=== PATIENT | male | born 1970 | race Caucasian/White ===

== ENCOUNTER 2019-12-15 06:00 | Outpatient (RCR) | payer OTHER, SELFPAY | END 2020-01-01 23:59 | disposition home or self-care (01) | LOC: MPT 06:00 | PROVIDERS: PCP Physical Medicine & Rehabilitation Pain Medicine; Visit Provider Physical Medicine & Rehabilitation Pain Medicine | DX: M54.5 Low back pain (principal) | CPT/HCPCS: 97032; 97110; 97140; 97161; G0283 ==

== ENCOUNTER 2020-01-02 06:00 | Outpatient (RCR) | payer OTHER, SELFPAY | END 2020-02-01 23:59 | disposition home or self-care (01) | LOC: MPT 06:00 | PROVIDERS: PCP Physical Medicine & Rehabilitation Pain Medicine; Visit Provider Physical Medicine & Rehabilitation Pain Medicine | DX: M47.896 Other spondylosis, lumbar region (principal) | CPT/HCPCS: 97110; 97140; G0283 ==

== ENCOUNTER 2022-01-05 07:20 | Inpatient (IN) | payer OTHER, SELFPAY ==
[2022-01-05] VITALS (14 sets, daily range): BP systolic 114–156; BP diastolic 72–124; PULSE 99–143; RESP 16–18; TEMP 37.4–38.4; O2SAT 87–96; BMI 34.5
--- NOTE | 2022-01-05 07:23 | XRR_ITS ---
PROCEDURE INFORMATION: Exam: XR Right Hand Exam date and time: 01/05/2022 7:23 AM Age: 51 years old Clinical indication: Pain; Wrist; Right; Additional info: Swelling pain TECHNIQUE: Imaging protocol: XR Right hand. Views: 3 or more views. COMPARISON: No relevant prior studies available. FINDINGS: Bones/joints: There is no acute fracture or dislocation. If symptoms persist, follow-up imaging in several days may be useful to exclude an occult fracture. No other significant acute bone or joint abnormality. Mild to moderate arthritic changes at the 1st carpometacarpal joint, and multiple interphalangeal joints. Soft tissues: There appears to be some diffuse soft tissue swelling/prominence. XR/XR hand RT min 3V* [id number] IMPRESSION: 1. No acute fracture or dislocation. 2. Other findings discussed above.
--- NOTE | 2022-01-05 07:31 | XRR_ITS ---
PROCEDURE INFORMATION: Exam: XR Right Wrist Exam date and time: 01/05/2022 7:31 AM Age: 51 years old Clinical indication: Pain; Wrist; Right TECHNIQUE: Imaging protocol: XR Right wrist. Views: 3 or more views. COMPARISON: No relevant prior studies available. FINDINGS: Bones/joints: There is no acute fracture or dislocation. If symptoms persist, follow-up imaging in several days may be useful to exclude an occult fracture. No other significant acute bone or joint abnormality. Mild to moderate arthritic changes at the 1st carpometacarpal joint. Soft tissues: There appears to be some diffuse soft tissue swelling/prominence. XR/XR wrist RT min 3V* [id number] IMPRESSION: 1. No acute fracture or dislocation. 2. Other findings discussed above.
--- NOTE | 2022-01-05 07:49 | ECG_ITS ---
[facility] Test Date: 2022-01-05 Pat Name: Star Valenzuela Department: Room: Gender: Male Network Analyst: : 1970 Requested By: Colton Esteves Order Number: [id number] Hollis MD: Kesha Stark M.D. Measurements Intervals [place] Rate: 138 P: 16 MN: 140 QRS: 11 QRSD: 80 T: 13 QT: 296 QTc: 450 Interpretive Statements SINUS TACHYCARDIA NONSPECIFIC T-WAVE ABNORMALITY No previous ECG available for comparison Electronically Signed On 01-05-2022 8:25:06 FEATURES REPORTER by Kesha Stark M.D. [id number]
--- NOTE | 2022-01-05 07:50 | CTR_ITS ---
PROCEDURE INFORMATION: Exam: CTA Right Upper Extremity With Contrast Exam date and time: 01/05/2022 7:50 AM Age: 51 years old Clinical indication: Pain; Swelling; Arm, lower; Right; Lower or forearm; Additional info: Soft tissue infection TECHNIQUE: Imaging protocol: Computed tomographic angiography of the Right upper extremity with intravenous contrast material, including non-contrast images if performed. 3D rendering (Not supervised by radiologist): MIP and/or 3D reconstructed images were created by the technologist. Radiation optimization: All CT scans at this facility use at least one of these dose optimization techniques: automated exposure control; mA and/or kV adjustment per patient size (includes targeted exams where dose is matched to clinical indication); or iterative reconstruction. Contrast material: OMNIPAQUE 350; Contrast volume: 90 ml; Contrast route: INTRAVENOUS (IV); COMPARISON: CR ([facility], ) 01/05/2022 7:51 AM RADIATION DOSE METRICS: Total DLP (mGy-cm): 654.96 FINDINGS: Right brachial artery: No acute findings. No occlusion or significant stenosis. Right radial artery: No acute findings. No occlusion or significant stenosis. Right ulnar artery: No acute findings. No occlusion or significant stenosis. Bones/joints: Scanning was from the distal humerus through the mid hand. Soft tissues: Diffuse soft tissue swelling is seen circumferentially involving the forearm with fluid in the subcutaneous tissues but not a well-defined collection. There is soft tissue swelling at the elbow posteriorly. In the wrist soft tissue swelling is circumferential but most severe involving the dorsum of the hand and wrist. [place] [id number] IMPRESSION: Soft tissue edema with areas of fluid but no defined fluid collection. This does extend to the musculature. Recommend MRI for better evaluation of the musculature to evaluate for possible myositis if clinically indicated. No discrete abscess. No vascular abnormality.
--- NOTE | 2022-01-05 07:56 | ED_ITS ---
HPI - Extremity Problem General: Chief complaint: Extremity Problem,Nontraumatic Stated complaint: Right lower arm swollen bad hurting bad Time Seen by Provider: 01/05/22 07:22 Source: patient Mode of arrival: ambulatory Limitations: no limitations History of Present Illness: 51-year-old male presents emergency room stating last week his right hand and forearm have continually increase in swelling red ness and pain. Painful to touch there is an abrasion along the dorsum of the hand seems rather superficial there are some vesicles beginning from the swelling. He has discomfort there is also noticed a fever at home. He is tachycardic on arrival here as well. He denies any other injury. No fall. MD Complaint: extremity pain and extremity swelling Onset (ago): day(s) (-) Pain Consistency: constant Location: right and upper extremity Quality: aching Radiation: distal Relieving factors: immobilization Exacerbating factors: range of motion and palpation Associated symptoms: Reports fever(s) and myalgias; Deny arthralgias, chest pain, rash or short of breath Review of Systems Const: Reports: fever(s) ENMT: Denies: throat pain, ear or mastoid pain, nasal discharge or nasal congestion Card: Denies: chest pain Resp: Denies: dyspnea, productive cough or non-productive cough GI: Denies: abdominal pain, nausea, vomiting, hematemesis, coffee ground emesis, diarrhea, constipation, bloating, hematochezia or melena : Denies: flank pain, dysuria, urinary frequency or urinary urgency Skin/Breast: Denies: rash PFSH ED PFSH: Medical History Hypertension Obesity Surgical History History of rhinoplasty Social History Smoking and tobacco status: never smoked Alcohol intake: never Physical Exam Const: GENERAL APPEARANCE: cooperative and comfortable ORIENTATION/CONSCIOUSNESS: Yes awake, Yes oriented to person, Yes oriented to place and Yes oriented to time HENMT: COMMON NORMALS: normocephalic, atraumatic and hearing grossly normal bilaterally HEAD & SCALP: normocephalic and atraumatic Neck/C-Spine: COMMON NORMALS: no JVD Lymph: OTHER: No epitrochlear or axillary lymphadenopathy noted on palpation Resp: COMMON NORMALS: normal respiratory effort, No retractions, No use of accessory muscles and clear to auscultation bilaterally AUSCULTATION: clear to auscultation bilaterally Cardio: COMMON NORMALS: no JVD, regular rate, regular rhythm and No murmurs present (Cardio) RATE: regular rate RHYTHM: regular rhythm GI: COMMON NORMALS: Soft to palpation and No hepatosplenomegaly present AUSCULTATION: Yes normoactive bowel sounds PALPATION: Yes Soft to palpation, No Tenderness to palpation present (GI), No Guarding due to palpation present (GI) and Yes No hepatosplenomegaly present Extremity: OTHER: Severe swelling of the right forearm wrist and hand with some vesicle formation on the dorsum of the wrist. No identifiable puncture wound laceration or abrasion and seems to be the nidus of infection. Patient is able to move fingers no significant pain with passive range of motion. Neuro: SENSORIUM/ORIENTATION: Yes oriented to person, Yes oriented to place and Yes oriented to time Skin: COMMON NORMALS: no rashes or lesions noted GENERAL SKIN EXAM: no rashes or lesions noted Course Vital Signs: Vital signs: Vital Signs Temperature 100.1 F H 01/05/22 15:29 Pulse Rate 104 H 01/05/22 15:29 Respiratory Rate 18 01/05/22 15:29 Blood Pressure 123/83 01/05/22 15:29 Pulse Oximetry 96 01/05/22 15:29 MDM - Extremity (Nontraumatic) Medical Decision Making Elevated white count with tachycardia and fever. The swelling is quite impressive on his arm. I do not believe this could safely be treated as an outpatient. Oral antibiotics likely to advancing infection and possible full- blown sepsis. She be treated with IV antibiotics and a inpatient setting started vancomycin cultures done discussed with hospitalist orders written Medical Records I reviewed the patient's medical records. Lab Data I reviewed the patient's lab results. : 01/05/22 07:50 01/05/22 07:50 Radiology Impressions Hand X-Ray 01/05/22 07:23 IMPRESSION: 1. No acute fracture or dislocation. 2. Other findings discussed above. Wrist X-Ray 01/05/22 07:31 IMPRESSION: 1. No acute fracture or dislocation. 2. Other findings discussed above. Upper Extremity CTA 01/05/22 07:50 IMPRESSION: Soft tissue edema with areas of fluid but no defined fluid collection. This does extend to the musculature. Recommend MRI for better evaluation of the musculature to evaluate for possible myositis if clinically indicated. No discrete abscess. No vascular abnormality. Laboratory Results WBC 13.7 10^3/uL (4.0-10.0) H 01/05/22 07:50 RBC 4.63 10^6/uL (4.1-5.3) 01/05/22 07:50 Hgb 14.0 g/dL (11.7-16.6) 01/05/22 07:50 Hct 41.6 % (42.0-52.0) L 01/05/22 07:50 MCV 89.8 fl (80-94) 01/05/22 07:50 MCH 30.2 pg (28.0-34.0) 01/05/22 07:50 MCHC 33.7 g/dL (30.0-36.0) 01/05/22 07:50 RDW 11.9 % (12.1-15.1) L 01/05/22 07:50 Plt Count 225 10^3/cmm (130-400) 01/05/22 07:50 MPV 10.6 fL (7.4-10.4) H 01/05/22 07:50 Neut % (Auto) 73.5 % 01/05/22 07:50 Lymph % (Auto) 14.6 % 01/05/22 07:50 [place] % (Auto) 10.0 % 01/05/22 07:50 Eos % (Auto) 0.7 % 01/05/22 07:50 Baso % (Auto) 0.5 % 01/05/22 07:50 Neut # (Auto) 10.04 10^3/uL (1.8-7.7) H 01/05/22 07:50 Lymph # (Auto) 2.0 10^3/uL (0.8-4.8) 01/05/22 07:50 [place] # (Auto) 1.4 10^3/uL (0.2-0.9) H 01/05/22 07:50 Eos # (Auto) 0.1 10^3/uL (0.0-0.8) 01/05/22 07:50 Baso # (Auto) 0.1 10^3/uL (0.0-0.1) 01/05/22 07:50 Nucleated RBC % (auto) 0 % 01/05/22 07:50 Nucleated RBCs # 0.0 /100WBC 01/05/22 07:50 Sodium 132 mmol/L (136-145) L 01/05/22 07:50 Potassium 4.1 mmol/L (3.5-5.1) 01/05/22 07:50 Chloride 96 mmol/L (98-107) L 01/05/22 07:50 Carbon Dioxide 23 mmol/L (22-29) 01/05/22 07:50 Anion Gap 17.1 (5-19) 01/05/22 07:50 BUN 17 mg/dL (6-20) 01/05/22 07:50 Creatinine 0.9 mg/dL (0.7-1.2) 01/05/22 07:50 GFR Calculation 89.7 mL/min (90-130) L 01/05/22 07:50 Glucose 141 mg/dL (65-115) H 01/05/22 07:50 Calculated Osmolality 278 mOsm/kg (285-295) L 01/05/22 07:50 Lactic Acid 1.4 mmol/L (0.5-2.2) 01/05/22 07:50 Calcium 9.5 mg/dL (8.5-10.5) 01/05/22 07:50 Total Bilirubin 0.5 mg/dL (0.15-1.2) 01/05/22 07:50 AST 36 U/L (0-40) 01/05/22 07:50 ALT 46 U/L (0-41) H 01/05/22 07:50 Alkaline Phosphatase 73 IU/L (40-130) 01/05/22 07:50 Creatine Kinase 78 U/L (39-308) 01/05/22 07:50 Total Protein 8.8 g/dL (6.6-8.7) H 01/05/22 07:50 Albumin 3.6 g/dL (3.5-5.2) 01/05/22 07:50 Globulin 5.2 g/dL (1.3-4.6) H 03/05/22 07:50 Discharge Plan Discharge Patient Disposition: Admitted As Inpatient Admit Provider: Duane Silva Clinical Impression: Right forearm cellulitis, Hypertension, Obesity Condition: Stable Coding Level of Care Code 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
[2022-01-05 08:00] LABS: Basophils # 0.1 10^3/uL (0.0-0.1); Basophils % 0.5 %; Eosinophils # 0.1 10^3/uL (0.0-0.8); Eosinophils % 0.7 %; Hematocrit 41.6 % (42.0-52.0); Lymphocytes % 14.6 %; Mean Corpuscular HGB Conc 33.7 g/dL (30.0-36.0); Mean Corpuscular Hemoglobin 30.2 pg (28.0-34.0); Mean Corpuscular Volume 89.8 fl (80-94); Mean Platelet Volume 10.6 fL (7.4-10.4); Monocytes # 1.4 10^3/uL (0.2-0.9); Neutrophils # 10.04 10^3/uL (1.8-7.7); Neutrophils % 73.5 %; Nucleated Red Blood Cells % 0 %; Platelet Count 225 10^3/cmm (130-400); Red Blood Count 4.63 10^6/uL (4.1-5.3); Red Cell Distribution Width 11.9 % (12.1-15.1); White Blood Count 13.7 10^3/uL (4.0-10.0)
[2022-01-05] MEDS: ondansetron 2 mg/ML SDV 2 mL 4 MG IVP (08:08)
[2022-01-05] MEDS: morphine 4 mg/mL SDV 1 mL IVP (08:09)
[2022-01-05] MEDS: acetaminophen 500 mg Tablet 1000 MG PO (08:11)
[2022-01-05] MEDS: vancomycin 1,000 MG in sodium chloride 0.9% 250 ML 250 MG IV (08:14)
[2022-01-05 08:18] LABS: Alanine Aminotransferase 46 U/L (0-41); Albumin Level 3.6 g/dL (3.5-5.2); Alkaline Phosphatase 73 IU/L (40-130); Anion Gap 17.1 (5-19); Aspartate Amino Transferase 36 U/L (0-40); Blood Urea Nitrogen 17 mg/dL (6-20); Calcium 9.5 mg/dL (8.5-10.5); Carbon Dioxide 23 mmol/L (22-29); Chloride 96 mmol/L (98-107); Creatine Phosphokinase 78 U/L (39-308); Globulin 5.2 g/dL (1.3-4.6); Glomerular Filtration Rate 89.7 mL/min (90-130); Glucose 141 mg/dL (65-115); Osmolality Calculated 278 mOsm/kg (285-295); Potassium 4.1 mmol/L (3.5-5.1); Sodium 132 mmol/L (136-145); Total Bilirubin 0.5 mg/dL (0.15-1.2); Total Protein 8.8 g/dL (6.6-8.7)
[2022-01-05 08:19] LABS: Lactic Sepsis W/Reflex 1.4 mmol/L (0.5-2.2)
[2022-01-05] MEDS: iohexol 350 mg/mL 100 mL Btl IV (08:43)
--- NOTE | 2022-01-05 13:31 | PM.HP ---
Providers/Chief Complaint Admitting Physician: Duane Silva MD Primary Care Provider: Dru Cage Chief Complaint: Right lower arm swollen bad hurting bad History of Present Illness Star Valenzuela is a 51 year old male with PMH of HTN and obesity came in with c/o increase swelling, redness and pain in rt forearm started a week after he bruised his hand. Upon arrival in the ER he was worked up for above mention complain. Pertinent Imaging studies : CT angio UE RT:Soft tissue edema with areas of fluid but no defined fluid collection. This does extend to the musculature. Pertinent Labs : WBC:13.7 , H&H:14/41 PLT: 225 , Na: 132 , K: 4.1 BUN/SCR: 17/0.9 Lactic acid :1.4 Review of Systems General: Reports: 10 or more systems reviewed and unremarkable except in HPI and below Const: Denies: body aches, change in appetite or diaphoresis Card: Denies: palpitations, edema, swelling of feet/ankles, dyspnea on exertion, orthopnea or leg pain with exertion Resp: Denies: dyspnea, productive cough, wheezing or pain on inspiration GI: Denies: abdominal pain, nausea, vomiting, diarrhea or constipation : Denies: flank pain or difficulty urinating Musc: Denies: back pain, extremity pain or extremity swelling Neuro: Denies: headache(s), difficulty walking or confusion Medications/Allergies Home Medications Medication Instructions Recorded Confirmed Last Taken Type albuterol sulfate 2.5 mg INHALATION Q6H PRN 01/05/22 01/05/22 Unknown History cholecalciferol (vitamin D3) 25 25 mcg PO DAILY 01/05/22 01/05/22 Unknown History mcg (1,000 unit) tablet cyanocobalamin (vitamin B-12) 100 100 mcg PO DAILY 01/05/22 01/05/22 Unknown History mcg tablet (Vitamin B-12) diclofenac sodium 1 % topical gel 2 g TOPICAL BID PRN 01/05/22 01/05/22 Unknown History escitalopram oxalate 20 mg tablet 20 mg PO DAILY 01/05/22 01/05/22 Unknown History famotidine 20 mg tablet 20 mg PO BID 01/05/22 01/05/22 Unknown History hydroxyzine HCl 25 mg tablet 25 mg PO BID 01/05/22 01/05/22 Unknown History lisinopril 40 mg tablet 20 mg PO BID 01/05/22 01/05/22 Unknown History Allergies Allergy/AdvReac Type Severity Reaction Status Date / Time No Known Allergies Allergy Verified 01/05/22 13:36 PFSH Acute PFSH: Medical History Hypertension Obesity Surgical History History of rhinoplasty Social History Smoking and tobacco status: never smoked Alcohol intake: never Vitals/I&O/Wt Last Vital Signs Temp 101.1 F H 01/05/22 07:45 Pulse 100 01/05/22 13:05 Resp 18 01/05/22 13:05 BP 115/84 01/05/22 12:28 Pulse Ox 92 01/05/22 13:05 01/04/22 01/05/22 01/05/22 22:59 06:59 14:59 Intake Total 250 / 250 Balance 250 / 250 Weight last 48 hrs Weight 115.666 kg Weight 115.666 kg Physical Exam Const: COMMON NORMALS: patient oriented x3 HENMT: COMMON NORMALS: normocephalic and atraumatic HEAD & SCALP: normocephalic and atraumatic Eye: GENERAL EYE: appearance normal, both eyes and all related structures Chest: COMMONS NORMALS: normal inspection of the chest and normal palpation of entire chest wall CHEST: Yes Symmetrical chest wall rise Resp: COMMON NORMALS: normal respiratory effort, No retractions, No use of accessory muscles and clear to auscultation bilaterally EFFORT & INSPECTION: Yes symmetric chest movement AUSCULTATION: clear to auscultation bilaterally Cardio: COMMON NORMALS: regular rate, regular rhythm, S1 normal heart sound present, S2 normal heart sound present, No gallops present (Cardio), No murmurs present (Cardio), No rub (Cardio) and Peripheral pulses 2+ throughout RATE: regular rate RHYTHM: regular rhythm HEART SOUNDS: S1 normal heart sound present and S2 normal heart sound present PERIPHERAL PULSES: Peripheral pulses 2+ throughout GI: COMMON NORMALS: Normal to inspection, nondistended, normoactive bowel sounds present, Soft to palpation, non-tender, No hepatosplenomegaly present and no masses AUSCULTATION: Yes normoactive bowel sounds PALPATION: Yes Soft to palpation and Yes No hepatosplenomegaly present RECTAL EXAM: Yes deferred Extremity: COMMON NORMALS: no clubbing, cyanosis or edema and no pedal edema NARRATIVE EXTREMITY EXAM: RT FOREARM ERYTHEMA , SWELLING AND REDNESS. Neuro: COMMON NORMALS: patient oriented x3 Data : 01/06/22 04:30 01/06/22 04:30 Micro: Microbiology 01/05/22 08:00 Blood Culture - Preliminary Blood SPECIMEN COLLECTED 01/05/22 07:52 Blood Culture - Preliminary Blood SPECIMEN COLLECTED A&P Assessment and plan (1) Right forearm cellulitis: Status: Acute (2) Hypertension: Status: Acute (3) Obesity: Status: Acute Plan 51 year old male with PMH of HTN and obesity came in with c/o increase swelling, redness and pain in rt forearm started a week after he bruised his hand #Cellulitis of the forearm: CT angio UE RT:Soft tissue edema with areas of fluid but no defined fluid collection. This does extend to the musculature. Blood culture negative till date Will monitor for compartmental syndrome. Continue Vanco and Zosyn #History of hypertension: Currently blood pressure is well controlled Continue to monitor #H/O obesity: Counseled regarding lifestyle changes. #CODE STATUS: Full code #DVT prophylaxis on Lovenox Attestations Medical Necessity Statement*: Patient needs to be in hospital for the management of Cellulitis.Need for I,V Abxs. Anticipated LOS greater then 2 midnights. Time Spent in Patient Care: Greater than 35 minutes (>than 50% of time spent in counselling and/or direct pt care on unit). 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
[2022-01-05] MEDS: enoxaparin 40 mg/0.4 mL Syringe SUBCUT (14:01)
[2022-01-05] MEDS: vancomycin 1,250 MG/250 ML PIGGYBACK 250 MG IV ×2 (14:01→23:37)
[2022-01-05] MEDS: acetaminophen 325 mg Tablet 650 MG PO (15:54)
[2022-01-05] MEDS: piperacillin-tazobactam 3.375 GM in sodium chloride 0.9% (plus) 50 ML IV (15:54)
[2022-01-06] VITALS (7 sets, daily range): BP systolic 117–123; BP diastolic 66–80; PULSE 76–110; RESP 17–18; TEMP 36.1–37.2; O2SAT 90–98
[2022-01-06] MEDS: piperacillin-tazobactam 3.375 GM in sodium chloride 0.9% (plus) 50 ML IV ×3 (00:51→15:49)
[2022-01-06] MEDS: ketorolac 10 mg Tablet PO ×2 (00:55→14:00)
[2022-01-06] MEDS: vancomycin 1,250 MG/250 ML PIGGYBACK 250 MG IV ×3 (05:19→21:57)
[2022-01-06 06:16] LABS: Basophils # 0.1 10^3/uL (0.0-0.1); Basophils % 0.5 %; Eosinophils # 0.1 10^3/uL (0.0-0.8); Eosinophils % 0.6 %; Hematocrit 36.6 % (42.0-52.0); Hemoglobin 11.8 g/dL (11.7-16.6); Lymphocytes # 2.4 10^3/uL (0.8-4.8); Lymphocytes % 23.1 %; Mean Corpuscular HGB Conc 32.2 g/dL (30.0-36.0); Mean Corpuscular Hemoglobin 30.3 pg (28.0-34.0); Mean Corpuscular Volume 94.1 fl (80-94); Mean Platelet Volume 11.1 fL (7.4-10.4); Monocytes # 1.3 10^3/uL (0.2-0.9); Monocytes % 12.4 %; Neutrophils % 62.1 %; Nucleated Red Blood Cells % 0 %; Platelet Count 148 10^3/cmm (130-400); Red Blood Count 3.89 10^6/uL (4.1-5.3); White Blood Count 10.3 10^3/uL (4.0-10.0)
[2022-01-06 06:40] LABS: Blood Urea Nitrogen 16 mg/dL (6-20); Calcium 8.1 mg/dL (8.5-10.5); Carbon Dioxide 24 mmol/L (22-29); Chloride 97 mmol/L (98-107); Glomerular Filtration Rate 89.7 mL/min (90-130); Glucose 107 mg/dL (65-115); Osmolality Calculated 278 mOsm/kg (285-295); Sodium 133 mmol/L (136-145)
[2022-01-06 07:05] LABS: Anion Gap 15.9 (5-19); Potassium 3.9 mmol/L (3.5-5.1)
--- NOTE | 2022-01-06 08:28 | P.PN_ITS ---
Subjective Subjective: Patient was seen and examined this morning, noted T-max overnight was 100.2. Complaining of pain in the right hand, erythema and swelling has decreased a little. WBC count is trending down Medications: Medication Review Details: Generic Name Dose Route Start Last Admin Trade Name Guillermoq PRN Reason Stop Dose Admin Acetaminophen 650 mg 01/05/22 13:26 01/06/22 15:46 Acetaminophen 32 5 Mg Tablet PO 650 mg Q6H PRN Administration Mild/Mod Pain Or Temp >/= 101 Enoxaparin Sodium 40 mg 01/05/22 13:30 01/06/22 13:33 Enoxaparin 40 Mg /0.4 Ml Syringe SUBCUT 40 mg Q24H REGIS Administration Piperacillin Sod/T azobactam 50 mls @ 12.5 mls /hr 01/05/22 16:30 01/06/22 12:18 Sod 3.375 gm/ So dium Chloride IV Infused Q8H REGIS Infusion Protocol Vancomycin/PEG/NAD A/Lysine/Water 1,250 mg in 250 m ls @ 250 mls/hr 01/05/22 13:45 01/06/22 15:40 Vancocin IV Infused Q8H REGIS Infusion Ketorolac Trometha mine 10 mg 01/05/22 13:26 01/06/22 14:00 Ketorolac 10 Mg Tablet PO 01/10/22 13:25 10 mg Q6H PRN Administration MODERATE PAIN Vitals/I&O/Wt Last Vital Signs Temp 98.2 F 01/06/22 07:29 Pulse 88 01/06/22 07:29 Resp 18 01/06/22 07:29 BP 122/76 01/06/22 07:29 Pulse Ox 95 01/06/22 07:29 01/05/22 01/06/22 01/06/22 22:59 06:59 14:59 Intake Total 780 / 1030 300 / 1330 250 / 250 Output Total 350 / 350 700 / 700 Balance 430 / 680 300 / 980 -450 / -450 Weight last 48 hrs Weight 115.666 kg Weight 115.666 kg Physical Exam Const: COMMON NORMALS: patient oriented x3 HENMT: COMMON NORMALS: normocephalic and atraumatic HEAD & SCALP: normocephalic and atraumatic Eye: GENERAL EYE: appearance normal, both eyes and all related structures Chest: COMMONS NORMALS: normal inspection of the chest and normal palpation of entire chest wall CHEST: Yes Symmetrical chest wall rise Resp: COMMON NORMALS: normal respiratory effort, No retractions, No use of accessory muscles and clear to auscultation bilaterally EFFORT & INSPECTION: Yes symmetric chest movement AUSCULTATION: clear to auscultation bilaterally Cardio: COMMON NORMALS: regular rate, regular rhythm, S1 normal heart sound present, S2 normal heart sound present, No gallops present (Cardio), No murmurs present (Cardio), No rub (Cardio) and Peripheral pulses 2+ throughout RATE: regular rate RHYTHM: regular rhythm HEART SOUNDS: S1 normal heart sound present and S2 normal heart sound present PERIPHERAL PULSES: Peripheral pulses 2+ throughout GI: COMMON NORMALS: Normal to inspection, nondistended, normoactive bowel sounds present, Soft to palpation, non-tender, No hepatosplenomegaly present and no masses AUSCULTATION: Yes normoactive bowel sounds PALPATION: Yes Soft to palpation and Yes No hepatosplenomegaly present RECTAL EXAM: Yes deferred Extremity: COMMON NORMALS: no clubbing, cyanosis or edema and no pedal edema NARRATIVE EXTREMITY EXAM: RT FOREARM ERYTHEMA , SWELLING AND REDNESS. Neuro: COMMON NORMALS: patient oriented x3 Data : 01/06/22 04:30 01/06/22 04:30 Micro: Microbiology 01/05/22 07:52 Blood Culture - Preliminary Blood NEGATIVE TO DATE 01/05/22 08:00 Blood Culture - Preliminary Blood SPECIMEN COLLECTED A&P Assessment and plan (1) Right forearm cellulitis: Status: Acute (2) Hypertension: Status: Acute (3) Obesity: Status: Acute Plan 51 year old male with PMH of HTN and obesity came in with c/o increase swelling, redness and pain in rt forearm started a week after he bruised his hand #Cellulitis of the forearm: CT angio UE RT:Soft tissue edema with areas of fluid but no defined fluid col lection. This does extend to the musculature. XR wrist RT:No acute fracture or dislocation. XR hand RT: No acute fracture or dislocation. Blood culture negative till date Will monitor for compartmental syndrome. Continue Vanco and Zosyn #History of hypertension: Currently blood pressure is well controlled Continue to monitor #H/O obesity: Counseled regarding lifestyle changes. #CODE STATUS: Full code #DVT prophylaxis on Lovenox Attestations Medical Necessity Statement*: Patient needs to be in hospital for the management of Cellulitis. Need for I,V Abxs. Coding Level of Care Code Acute Vegetable Buncher for [facility] Fwd Exam Comprehensive Diagnoses Right forearm cellulitis L03.113 Hypertension I10 Obesity E66.9
[2022-01-06] MEDS: enoxaparin 40 mg/0.4 mL Syringe SUBCUT (13:33)
[2022-01-06 14:15] LABS: Vancomycin Trough 15.7 ug/mL (10-15)
--- NOTE | 2022-01-06 14:31 | PC.NURSE ---
confirmed with pharmacy that vancomycin was ok to administer with trough of 15.7. Dr mcphersons pt between 15-20
[2022-01-06] MEDS: acetaminophen 325 mg Tablet 650 MG PO (15:46)
[2022-01-07] VITALS (8 sets, daily range): BP systolic 111–153; BP diastolic 64–96; PULSE 68–87; RESP 13–19; TEMP 36.4–36.9; O2SAT 95–99
[2022-01-07] MEDS: piperacillin-tazobactam 3.375 GM in sodium chloride 0.9% (plus) 50 ML IV ×3 (00:41→16:47)
[2022-01-07 04:56] LABS: Basophils # 0.1 10^3/uL (0.0-0.1); Basophils % 0.8 %; Eosinophils # 0.2 10^3/uL (0.0-0.8); Eosinophils % 2.3 %; Hematocrit 35.6 % (42.0-52.0); Hemoglobin 11.5 g/dL (11.7-16.6); Lymphocytes % 26.6 %; Mean Corpuscular HGB Conc 32.3 g/dL (30.0-36.0); Mean Corpuscular Hemoglobin 30.3 pg (28.0-34.0); Mean Corpuscular Volume 93.9 fl (80-94); Mean Platelet Volume 10.1 fL (7.4-10.4); Monocytes # 0.9 10^3/uL (0.2-0.9); Monocytes % 11.6 %; Neutrophils # 3.94 10^3/uL (1.8-7.7); Neutrophils % 53.8 %; Nucleated Red Blood Cells % 0 %; Platelet Count 172 10^3/cmm (130-400); Red Blood Count 3.79 10^6/uL (4.1-5.3); Red Cell Distribution Width 11.9 % (12.1-15.1); White Blood Count 7.3 10^3/uL (4.0-10.0)
[2022-01-07 05:11] LABS: Anion Gap 12.9 (5-19); Blood Urea Nitrogen 15 mg/dL (6-20); Calcium 7.8 mg/dL (8.5-10.5); Carbon Dioxide 25 mmol/L (22-29); Chloride 97 mmol/L (98-107); Glomerular Filtration Rate 143.2 mL/min (90-130); Glucose 121 mg/dL (65-115); Osmolality Calculated 274 mOsm/kg (285-295); Potassium 3.9 mmol/L (3.5-5.1); Sodium 131 mmol/L (136-145)
[2022-01-07] MEDS: vancomycin 1,250 MG/250 ML PIGGYBACK 250 MG IV ×3 (06:18→19:44)
--- NOTE | 2022-01-07 06:45 | CT_ITS ---
WS: [id number] CT HEAD NONCONTRAST HISTORY: fall, hit head TECHNIQUE: Contiguous axial imaging performed through the brain in 2.5 mm imaging. Bone and soft tiss ue windows. Sagittal and coronal reformats reviewed. All CT scans at [facility] use at least one of these dose optimization techniques: automated exposure control; mA and/or kV adjustment per pa tient size (includes targeted exams where dose is matched to clinical indication); or iterative recon struction. DLP: 1024.37 mGy.cm COMPARISON: None available. No acute intracranial hemorrhage, midline shift or mass effect. No atrophy or prior infarcts or herniation. Minimal chronic microvascular ischemic type changes. Ventricles: Normal size with no hydrocephalus. No inferior displacement of the cerebellar tonsils. Paranasal sinuses: As visualized are clear. Mastoid air cells: Well pneumatized. Calvarium and scalp: No skull fracture is identified. There is a tiny area soft tissue thickening ove r the posterior high LEFT parietal bone which may be chronic or due to the recent trauma. CT/CT head wo con* [id number] IMPRESSION: 1. No acute intracranial hemorrhage or edema. 2. Mild small vessel ischemic disease. 3. No skull fracture.
[2022-01-07] MEDS: ketorolac 10 mg Tablet PO ×2 (08:12→16:46)
--- NOTE | 2022-01-07 12:00 | PC.CHAP ---
Pastoral Care Encounter/Spiritual Assessment Type of Contact [] Declined coil connector visit [] Patient/Family/Request visit [] Outpatient visit [] Follow-up visit [] Physician referral [] Code/Alert [x] Routine visit [] Staff referral [] Actively dying [] Patient sleeping [] Family support [] [] Out of room [] Palliative care [] [] Receiving care in room [] Pre-surgical visit [] Trauma [] Long length of stay [] ICU visit [] Other: Relational/Emotional Strength [x] Patient feels connected with others/family/visitors/staff [] Distress [] Loneliness/isolation [] Abandonment Spirituality of Patient [x] Person of Sandrine [x] Attends Yazdanism of their Sandrine [x] Believes in Prayer [] Reads Bible or Spiritism materials [] There are Spiritual issues to be addressed Master Motorcycle Technician Interventions x x[] Prayer [x] Active listening [x] Non-anxious presence [] Spiritual/emotional support [] Crisis/trauma care [x] Spiritual counseling [] Bereavement support [x] Provided bereavement packet [] Provided Bible/devotional materials [] Provided toy/stuffed animal, coloring book to patient or family member [] Provided Communion [] Anointing/[place] [] Salvation [x] Completed spiritual assessment [] Other: Impact on Illness or Injury [] Angry [] Fearful [] Anxious [] Often cries [] Exhaustion [] Unable to work [] Unable to attend temple [] Unable to walk/stand [] Unable to read [] Unable to drive [] Unable to eat/drink [] Unable to sleep [] Unable to be with family [] Patient intubated [] Other: Summary Time spent with patient 15 min
[2022-01-07 13:43] LABS: Bacillus cereus group Not Detected (NOT DETECT); Bacillus subtillis group Not Detected (NOT DETECT); Corynebacterium Not Detected (NOT DETECT); Cutibacterium acnes (P.acnes) Not Detected (NOT DETECT); Enterococcus Not Detected (NOT DETECT); Enterococcus faecalis Not Detected (NOT DETECT); Enterococcus faecium Not Detected (NOT DETECT); Lactobacillus species Not Detected (NOT DETECT); Listeria Not Detected (NOT DETECT); Listeria monocytogenes Not Detected (NOT DETECT); Micrococcus Not Detected (NOT DETECT); Pan Candida Not Detected (NOT DETECT); Pan Gram-Negative Not Detected (NOT DETECT); Staphylococcus epidermidis Not Detected (NOT DETECT); Staphylococcus lugdunensis Not Detected (NOT DETECT); Staphylococcus species Not Detected (NOT DETECT); Streptococcus agalactiae Not Detected (NOT DETECT); Streptococcus anginosus group Detected (NOT DETECT); Streptococcus pneumoniae Not Detected (NOT DETECT); Streptococcus pyogenes Not Detected (NOT DETECT); Streptococcus species Detected (NOT DETECT)
[2022-01-07] MEDS: enoxaparin 40 mg/0.4 mL Syringe SUBCUT (13:44)
--- NOTE | 2022-01-07 14:54 | P.PN_ITS ---
Subjective Subjective: Hospital course, labs appreciated. On examination patient lying comfortably in bed. States he is feeling a lot better than before. States redness and swelling in the arm is reducing. Denies any nausea, vomiting, headache. Has remained hemodynamically stable and afebrile. Vitals/I&O/Wt Last Vital Signs Temp 97.6 F 01/07/22 06:41 Pulse 81 01/07/22 11:52 Resp 14 01/07/22 11:52 BP 111/75 01/07/22 11:52 Pulse Ox 97 01/07/22 11:52 01/06/22 01/07/22 01/07/22 22:59 06:59 14:59 Intake Total 780 / 1560 400 / 1960 300 / 300 Output Total 300 / 1600 Balance 780 / 260 100 / 360 300 / 300 Physical Exam Const: COMMON NORMALS: patient oriented x3 HENMT: COMMON NORMALS: normocephalic and atraumatic HEAD & SCALP: normocephalic and atraumatic Eye: GENERAL EYE: appearance normal, both eyes and all related structures Chest: COMMONS NORMALS: normal inspection of the chest and normal palpation of entire chest wall CHEST: Yes Symmetrical chest wall rise Resp: COMMON NORMALS: normal respiratory effort, No retractions, No use of accessory muscles and clear to auscultation bilaterally EFFORT & INSPECTION: Yes symmetric chest movement AUSCULTATION: clear to auscultation bilaterally Cardio: COMMON NORMALS: regular rate, regular rhythm, S1 normal heart sound present, S2 normal heart sound present, No gallops present (Cardio), No murmurs present (Cardio), No rub (Cardio) and Peripheral pulses 2+ throughout RATE: regular rate RHYTHM: regular rhythm HEART SOUNDS: S1 normal heart sound pr esent and S2 normal heart sound present PERIPHERAL PULSES: Peripheral pulses 2+ throughout GI: COMMON NORMALS: Normal to inspection, nondistended, normoactive bowel sounds present, Soft to palpation, non-tender, No hepatosplenomegaly present and no masses AUSCULTATION: Yes normoactive bowel sounds PALPATION: Yes Soft to palpation and Yes No hepatosplenomegaly present RECTAL EXAM: Yes deferred Extremity: COMMON NORMALS: no clubbing, cyanosis or edema and no pedal edema NARRATIVE EXTREMITY EXAM: RT FOREARM ERYTHEMA , SWELLING AND REDNESS. Neuro: COMMON NORMALS: patient oriented x3 Data : 01/07/22 04:45 01/07/22 04:45 Micro: Microbiology 01/05/22 07:52 Blood Culture - Preliminary Blood Strep anginosus group 01/05/22 08:00 Blood Culture - Preliminary Blood NEGATIVE TO DATE A&P Assessment and plan (1) Right forearm cellulitis: Status: Acute (2) Hypertension: Status: Acute (3) Obesity: Status: Acute Plan 51 year old male with PMH of HTN and obesity came in with c/o increase swelling, redness and pain in rt forearm started a week after he bruised his hand #Cellulitis of the forearm: Without any abscess. Edema extending up to musculature. No signs of compartment syndrome currently. Continue with vancomycin and Zosyn. MRSA swab. Depending on the MRSA swab results we will plan for antibiotics as an outpatient. Streptococcus bacteremia: 1 out of 4 bottles from admission positive. Most likely contaminant. Repeat blood culture to confirm #History of hypertension: Goal blood pressure less than 140/90 mmHg. Continue with home medications. Continue to monitor. #H/O obesity: Counseled regarding lifestyle changes. #CODE STATUS: Full code Cardiac diet. Famotidine for PUD prophylaxis #DVT prophylaxis on Lovenox Attestations Medical Necessity Statement*: Requires further hospitalization for management of right arm cellulitis, Streptococcus bacteremia Time Spent in Patient Care: Greater than 35 minutes Coding Level of Care Code Acute [employer] for [facility] Fwd Diagnoses Right forearm cellulitis L03.113 Hypertension I10 Obesity E66.9
[2022-01-08] MEDS: piperacillin-tazobactam 3.375 GM in sodium chloride 0.9% (plus) 50 ML IV (00:53)
[2022-01-08 04:00] VITALS: BP 132/88; PULSE 81; RESP 17; TEMP 36.4; O2SAT 94
[2022-01-08] MEDS: acetaminophen 325 mg Tablet 650 MG PO ×2 (04:01→11:33)
[2022-01-08] MEDS: vancomycin 1,250 MG/250 ML PIGGYBACK 250 MG IV (05:04)
[2022-01-08 05:06] LABS: Basophils # 0.1 10^3/uL (0.0-0.1); Basophils % 1.4 %; Eosinophils # 0.2 10^3/uL (0.0-0.8); Hematocrit 39.7 % (42.0-52.0); Hemoglobin 12.4 g/dL (11.7-16.6); Lymphocytes # 2.4 10^3/uL (0.8-4.8); Lymphocytes % 30.5 %; Mean Corpuscular HGB Conc 31.2 g/dL (30.0-36.0); Mean Corpuscular Hemoglobin 30.1 pg (28.0-34.0); Mean Corpuscular Volume 96.4 fl (80-94); Mean Platelet Volume 9.8 fL (7.4-10.4); Monocytes # 0.7 10^3/uL (0.2-0.9); Neutrophils # 3.69 10^3/uL (1.8-7.7); Neutrophils % 47.6 %; Nucleated Red Blood Cells % 0 %; Platelet Count 268 10^3/cmm (130-400); Red Blood Count 4.12 10^6/uL (4.1-5.3); Red Cell Distribution Width 11.9 % (12.1-15.1); White Blood Count 7.8 10^3/uL (4.0-10.0)
[2022-01-08 05:29] LABS: Slide Review Slide Review Perform
[2022-01-08 07:27] VITALS: BP 126/84; PULSE 74; RESP 14; TEMP 37.2; O2SAT 98
[2022-01-08 09:09] LABS: Alanine Aminotransferase 30 U/L (0-41); Albumin Level 2.9 g/dL (3.5-5.2); Alkaline Phosphatase 51 IU/L (40-130); Aspartate Amino Transferase 32 U/L (0-40); Blood Urea Nitrogen 14 mg/dL (6-20); Calcium 8.9 mg/dL (8.5-10.5); Carbon Dioxide 24 mmol/L (22-29); Chloride 102 mmol/L (98-107); Chol HDL Ratio 7.18 mg/dL (1.0-5.00); Cholesterol 122 mg/dL (0-200); Globulin 4.4 g/dL (1.3-4.6); Glomerular Filtration Rate 143.2 mL/min (90-130); Glucose 100 mg/dL (65-115); HDL Cholesterol 17 mg/dL (60-100); LDL Cholesterol Calculated 72 mg/dL (50-129); Osmolality Calculated 283 mOsm/kg (285-295); Sodium 136 mmol/L (136-145); Total Bilirubin 0.3 mg/dL (0.15-1.2); Total Protein 7.3 g/dL (6.6-8.7); Triglycerides 163 mg/dL (0-150); VLDL Cholestrol Calculation 33 mg/dL (0-30)
[2022-01-08 09:25] LABS: Estmated Average Glucose 100; Hemoglobin A1C 5.1 % (4.0-6.0)
[2022-01-08] MEDS: amoxicillin-clav 500-125 mg Tablet 1 TAB PO (11:31)
[2022-01-08 11:42] VITALS: BP 117/79; PULSE 69; RESP 12; TEMP 37.2; O2SAT 97
--- NOTE | 2022-01-08 13:08 | P.DS_ITS ---
Discharge Providers Date of Admission: 01/05/22 11:03 Date of Discharge: January 08, 2022 Attending Provider at Admission: Duane Silva MD Attending Provider at Discharge: Leonel Mcginnis MD Primary Care Provider: Dru Cage Diagnoses at Discharge Discharge Diagnosis (1) Right forearm cellulitis: Status: Acute (2) Hypertension: Status: Acute (3) Obesity: Status: Acute Reason for Visit Reason for Visit: Right lower arm swollen bad hurting bad Hospital Course Hospital Course Star Valenzuela is a 51 year old male with PMH of HTN and obesity came in with c/o? increase swelling, redness and pain in rt forearm started a week after he bruised his hand.? Upon arrival in the ER he was worked up for above mention complain. He was started on broad-spectrum antibiotics CT arm was done which ruled out any abscess collection but was consistent with a possible cellulitis. Blood cultures are then 1 out of 4 bottles positive for coag negative staph remain negative. Positive blood culture is most likely contaminant. Repeat blood culture has so far remain negative. Patient has remained hemodynamically stable and afebrile during hospitalization. Otherwise her hospitalization was unremarkable. He is been discharged on oral antibiotics with Augmentin and doxycycline for next 5 days. He is advised to continue dressing his wound with Betadine paint daily. He is advised to follow-up with his primary care provider within next 1 week. His blood pressures have been stable without antihypertensives during hospitalization. For now he is advised not to take lisinopril. He is advised to maintain a blood pressure diary for next 1 week and follow-up with his primary care provider for reinitiation of antihypertensives as needed. Physical Exam Const: COMMON NORMALS: patient oriented x3 HENMT: COMMON NORMALS: normocephalic and atraumatic HEAD & SCALP: normocephalic and atraumatic Eye: GENERAL EYE: appearance normal, both eyes and all related structures Chest: COMMONS NORMALS: normal inspection of the chest and normal palpation of entire chest wall CHEST: Yes Symmetrical chest wall rise Resp: COMMON NORMALS: normal respiratory effort, No retractions, No use of accessory muscles and clear to auscultation bilaterally EFFORT & INSPECTION: Yes symmetric chest movement AUSCULTATION: clear to auscultation bilaterally Cardio: COMMON NORMALS: regular rate, regular rhythm, S1 normal heart sound present, S2 normal heart sound present, No gallops present (Cardio), No murmurs present (Cardio), No rub (Cardio) and Peripheral pulses 2+ throughout RATE: regular rate RHYTHM: regular rhythm HEART SOUNDS: S1 normal heart sound present and S2 normal heart sound present PERIPHERAL PULSES: Peripheral pulses 2+ throughout GI: COMMON NORMALS: Normal to inspection, nondistended, normoactive bowel sounds present, Soft to palpation, non-tender, No hepatosplenomegaly present and no masses AUSCULTATION: Yes normoactive bowel sounds PALPATION: Yes Soft to palpation and Yes No hepatosplenomegaly present RECTAL EXAM: Yes deferred Extremity: COMMON NORMALS: no clubbing, cyanosis or edema and no pedal edema NARRATIVE EXTREMITY EXAM: RT FOREARM ERYTHEMA , SWELLING AND REDNESS. Neuro: COMMON NORMALS: patient oriented x3 Discharge Data Studies Completed and Pending Completed Studies During Hospitalization Category Date Time Status CT head wo con* [id number] Routine Cat Scan 01/07/22 06:45 Completed CTA upper extremity [place] [id number]] Stat Cat Scan 01/05/22 07:50 Completed XR hand RT min 3V* [id number] Stat Exams 01/05/22 07:23 Completed XR wrist RT min 3V* [id number] Stat Exams 01/05/22 07:31 Completed Pending at discharge Category Date Time Status Blood Culture Stat Lab 01/05/22 08:00 Results Blood Culture Stat Lab 01/07/22 20:42 Results MRSA by PCR Routine Lab 01/07/22 14:20 Received Radiology Impressions Hand X-Ray 01/05/22 07:23 IMPRESSION: 1. No acute fracture or dislocation. 2. Other findings discussed above. Wrist X-Ray 01/05/22 07:31 IMPRESSION: 1. No acute fracture or dislocation. 2. Other findings discussed above. Upper Extremity CTA 01/05/22 07:50 IMPRESSION: Soft tissue edema with areas of fluid but no defined fluid collection. This does extend to the musculature. Recommend MRI for better evaluation of the musculature to evaluate for possible myositis if clinically indicated. No discrete abscess. No vascular abnormality. Head CT 01/07/22 06:45 IMPRESSION: 1. No acute intracranial hemorrhage or edema. 2. Mild small vessel ischemic disease. 3. No skull fracture. Laboratory Results WBC 7.8 10^3/uL (4.0-10.0) 01/08/22 04:29 RBC 4.12 10^6/uL (4.1-5.3) 01/08/22 04:29 Hgb 12.4 g/dL (11.7-16.6) 01/08/22 04:29 Hct 39.7 % (42.0-52.0) L 01/08/22 04:29 MCV 96.4 fl (80-94) H 01/08/22 04:29 MCH 30.1 pg (28.0-34.0) 01/08/22 04: MCHC 31.2 g/dL (30.0-36.0) 01/08/22 04: RDW 11.9 % (12.1-15.1) L 01/08/22 04:29 Plt Count 268 10^3/cmm (130-400) D 01/08/22 04:29 MPV 9.8 fL (7.4-10.4) 01/08/22 04:29 Neut % (Auto) 47.6 % 01/08/22 04:29 Lymph % (Auto) 30.5 % 01/08/22 04:29 [place] % (Auto) 9.0 % 01/08/22 04:29 Eos % (Auto) 3.0 % 01/08/22 04:29 Baso % (Auto) 1.4 % 01/08/22 04: Neut # (Auto) 3.69 10^3/uL (1.8-7.7) 01/08/22 04:29 Lymph # (Auto) 2.4 10^3/uL (0.8-4.8) 01/08/22 04:29 [place] # (Auto) 0.7 10^3/uL (0.2-0.9) 01/08/22 04:29 Eos # (Auto) 0.2 10^3/uL (0.0-0.8) 01/08/22 04:29 Baso # (Auto) 0.1 10^3/uL (0.0-0.1) 01/08/22 04:29 Nucleated RBC % (auto) 0 % 01/08/22 04:29 Nucleated RBCs # 0.0 /100WBC 01/08/22 04:29 Sodium 136 mmol/L (136-145) 01/08/22 04:29 Potassium 4.0 mmol/L (3.5-5.1) 01/08/22 04:29 Chloride 102 mmol/L (98-107) 01/08/22 04:29 Carbon Dioxide 24 mmol/L (22-29) 01/08/22 04:29 Anion Gap 14.0 (5-19) 01/08/22 04:29 BUN 14 mg/dL (6-20) 01/08/22 04:29 Creatinine 0.6 mg/dL (0.7-1.2) L 01/08/22 04:29 GFR Calculation 143.2 mL/min (90-130) H 01/08/22 04:29 Glucose 100 mg/dL (65-115) 01/08/22 04:29 Estimat Average Glucose 100 01/08/22 04:29 Hemoglobin A1c 5.1 % (4.0-6.0) 01/08/22 04:29 Calculated Osmolality 283 mOsm/kg (285-295) L 01/08/22 04:29 Lactic Acid 1.4 mmol/L (0.5-2.2) 01/05/22 07:50 Calcium 8.9 mg/dL (8.5-10.5) 01/08/22 04:29 Total Bilirubin 0.3 mg/dL (0.15-1.2) 01/08/22 04:29 AST 32 U/L (0-40) 01/08/22 04:29 ALT 30 U/L (0-41) 01/08/22 04:29 Alkaline Phosphatase 51 IU/L (40-130) 01/08/22 04:29 Creatine Kinase 78 U/L (39-308) 01/05/22 07:50 Total Protein 7.3 g/dL (6.6-8.7) 01/08/22 04:29 Albumin 2.9 g/dL (3.5-5.2) L 01/08/22 04:29 Globulin 4.4 g/dL (1.3-4.6) 01/08/22 04:29 Triglycerides 163 mg/dL (0-150) H 01/08/22 04:29 Cholesterol 122 mg/dL (0-200) 01/08/22 04:29 LDL Cholesterol, Calc 72 mg/dL (50-129) 01/08/22 04:29 Total VLDL Cholesterol 33 mg/dL (0-30) H 01/08/22 04:29 HDL Cholesterol 17 mg/dL (60-100) L 01/08/22 04:29 Cholesterol/HDL Ratio 7.18 mg/dL (1.0-5.00) H 01/08/22 04:29 Vancomycin Trough 15.7 ug/mL (10-15) H 01/06/22 13:34 Vitals Last Vital Signs Temp 98.9 F 01/08/22 11:42 Pulse 69 01/08/22 11:42 Resp 12 01/08/22 11:42 BP 117/79 01/08/22 11:42 Pulse Ox 97 01/08/22 11:42 Discharge Plan Discharge Patient Disposition: Home Condition: Stable Prescriptions: New doxycycline monohydrate 100 mg Tablet 100 mg PO BID 5 Days Qty: 10 0RF amoxicillin-pot clavulanate 500-125 mg Tablet 1 tab PO TID 5 Days Qty: 15 0RF Continued Vitamin B-12 100 mcg tablet 100 mcg PO DAILY 0RF albuterol sulfate 2.5 mg /3 mL (0.083 %) solution for nebulization 2.5 mg inhalation Q6H PRN (Reason: Shortness Of Breath) 0RF famotidine 20 mg tablet 20 mg PO BID 0RF hydroxyzine HCl 25 mg tablet 25 mg PO BID 0RF escitalopram oxalate 20 mg tablet 20 mg PO DAILY 0RF cholecalciferol (vitamin D3) 25 mcg (1,000 unit) tablet 25 mcg PO DAILY 0RF diclofenac sodium 1 % gel 2 g TOPICAL BID PRN (Reason: Pain) 0RF Discontinued lisinopril 40 mg tablet 20 mg PO BID 0RF Discharge Orders: Discharge Order (Routine); Ordered 01/08/22 Ordered By: Leonel Mcginnis Referrals: Dru Cage [Primary Care Provider] - 7-[address] [facility] [Family Provider] - Discharge Diet: Usual diet Discharge Activity: Resume usual activity and Increase activity as tolerated Patient Instructions: Opioid Safety Activity Restrictions/Additional Instructions: Continue taking antibiotics which includes Augmentin and doxycycline for next 5 days. Continue dressing the wound with Betadine paint daily. Please follow-up with your primary care provider within next 7 to 10 days. Blood pressures have been stable without antihypertensives. Check your blood pressure daily and maintain a blood pressure diary and follow-up with your primary care provider for reinitiation of antihypertensives as needed. For now do not take lisinopril. Discharge Attestations Time Spent in Discharge Care*: greater than 30 min Specific Discharge Activities: educating patient, discussing with pcp/other providers, discussing with disease case manager rn/social workers/dc planners, documenting/other paperwork and evaluating patient/reviewing data Status at Discharge: Cognitive status at discharge: cognitively intact , Behavioral status at discharge: cooperative , Functional status at discharge: independent ambulation , Overall status at discharge: patient is back to baseline Quality Metrics Clinical Quality Measures [ No reported AMI, CVA or VTE this stay] Coding Level of Care Code Acute Chg FW DC note Diagnoses Right forearm cellulitis L03.113 Hypertension I10 Obesity E66.9
--- NOTE | 2022-01-08 14:50 | PC.NURSE ---
patient verbalized understanding of discharge instructions, home medications, dressing care, and follow up appointments. patient also verbalized understanding of needing to apple picker prescriptions at our pharmacy.
[2022-01-08 14:53] VITALS: BP 117/79; PULSE 69; RESP 12; TEMP 37.2; O2SAT 97
== END 2022-01-08 14:15 | disposition home or self-care (01) | DRG 603 ==
LOC: ER 11:26 → MEDSURG 12:55
PROVIDERS: Admitting Provider Internal Medicine; Emergency Provider Family Medicine; PCP Physical Medicine & Rehabilitation Pain Medicine; Visit Provider Student in an Organized Health Care Education/Training Program
DX: L03.113 Cellulitis of right upper limb (principal); I10 Essential (primary) hypertension; E66.9 Obesity, unspecified; Z68.34 Body mass index [BMI] 34.0-34.9, adult
CPT/HCPCS: 36415; 70450; 73110; 73130; 73206; 80048; 80053; 80061; 80202; 82550; 83036; 83605; 85025; 87040; 87150; 87205; 87641; 93005; 96365; 96372; 96375; 97110; 97116; 97161; 99285; J1650; J2270; J2405; J2543; J3370; J7050; Q9967

== ENCOUNTER 2022-05-28 11:06 | Outpatient (CLI) | payer OTHER, SELFPAY ==
--- NOTE | 2022-05-28 11:22 | US_ITS ---
WS: [id number] RIGHT UPPER QUADRANT ULTRASOUND HISTORY: HX OF HEP C COMPARISON: None available. Liver: 17.1 cm in length. Liver is very mildly enlarged. Coarse echotexture from mild hepatic steatos is. No mass or bile duct dilatation. Portal Vein: Normal hepatopetal flow with monophasic waveform. Gallbladder: Normally distended gallbladder with no stones or wall thickening. CBD: 0.4 cm Pancreas: Normal size and echogenicity. Right kidney: 12.2 cm in length. Normal size and echogenicity. No hydronephrosis or mass. Aorta and IVC: Unremarkable abdominal aorta and IVC. No ascites. US/US abdomen limited [id number] IMPRESSION: 1. Normal gallbladder. 2. Mild hepatic steatosis and hepatomegaly.
--- NOTE | 2022-05-28 11:22 | MR_ITS ---
WS: [id number] MRI RIGHT KNEE NONCONTRAST TECHNIQUE: Axial PD, coronal PD fat sat, coronal PD, sagittal PD, and sagittal PD fat-sat images obta ined. CLINICAL INFORMATION: PAIN GIVES AWAY COMPARISON: MRI 2012 FINDINGS: Distal quadriceps and patella tendons are intact. Hypertrophic patella. Small suprapatellar effusion. Advanced tricompartmental arthritis with loss of the joint space and advanced chondromalacia signifi cantly progressed compared to 2012. Hypertrophic spurring with osteophytosis along the joint line. Nu merous calcified intra-articular degenerative osteochondral bodies. PCL is intact. ACL is not visualized likely chronically torn. Diffuse advanced chondromalacia involvi ng the medial and lateral joint compartments with advanced chronic thinning of the meniscus with cotton roll packer indira tears. Complete loss of the medial and lateral joint compartments with [id number] articulation and grade IV chondromalacia. Associated subchondral edema. Moderate to advanced chondromalacia patella. Medial and lateral collateral ligaments are intact. Subc hondral edema involving the tibial plateau extending to the tibial spines as well as the femoral cond yles. MR/MR knee RT wo con* [id number] IMPRESSION: 1. 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 [id number] articulation in t he medial and lateral joint compartments with grade IV chondromalacia and subch ondral edema. 2. Normal PCL. ACL is not visualized chronically torn. 3. Small suprapatellar effusion. 4. Moderate to advanced chondromalacia patella. 5. Advanced osteophytosis along the joint line with degenerative intra-articul ar osteochondral bodies. Outbridge grading: grade IV: full-thickness cartilage loss with underlying bone reactive changes
== END 2022-05-28 11:07 | disposition home or self-care (01) ==
LOC: RAD 11:10
PROVIDERS: PCP Family Medicine; Visit Provider Family Medicine
DX: Z86.19 Personal history of other infectious and parasitic diseases (principal); M13.861 Other specified arthritis, right knee; M22.41 Chondromalacia patellae, right knee; R60.0 Localized edema; M25.461 Effusion, right knee; K76.0 Fatty (change of) liver, not elsewhere classified; R16.0 Hepatomegaly, not elsewhere classified
CPT/HCPCS: 73721; 76705

== ENCOUNTER 2022-05-28 11:09 | Outpatient (CLI) | payer OTHER, SELFPAY ==
--- NOTE | 2022-05-28 11:26 | MR_ITS ---
WS: [id number] MRI LUMBAR SPINE NONCONTRAST TECHNIQUE: Sagittal T1, T2 and STIR imaging. Axial T1 and T2 imaging. CLINICAL INFORMATION: LUMBAR SPONDYLOSIS COMPARISON: None. FINDINGS: Mild lumbar curve. No acute compression. Multilevel disc space narrowing throughout the lumbar spine with endplate degenerative changes. This is worse at L3-L4, L4-L5, and L5-S1. L1-L2: No significant disc bulging. Mild facet arthropathy. Spinal canal and foramen are patent. L2-L3: Mild annular bulging. Moderate facet arthropathy. Spinal canal and foramen are patent. L3-L4: Mild disc bulging with a small annular fissure. Moderate narrowing of the thecal sac with [place] ding of the cauda equina nerve rootlets. Epidural fat contributes to stenosis. Moderate facet arthrop athy and ligamentum flavum hypertrophy. Mild RIGHT greater than LEFT foraminal narrowing. L4-L5: Shallow RIGHT pericentral disc protrusion impinges the RIGHT subarticular recess and traversin g RIGHT L5 nerve root. Severe narrowing of the thecal sac with crowding of the cauda equina nerve derrell tlets. Epidural fat contributes to stenosis. Moderate facet arthropathy with ligamentum flavum hypert rophy. Moderate RIGHT foraminal narrowing. L5-S1: Mild disc osteophytic ridging with slight effacement of ventral thecal sac. Shallow central pr otrusion slightly contacts the traversing LEFT greater than RIGHT S1 nerve roots. Moderate LEFT and m ild RIGHT foraminal narrowing. Moderate facet arthropathy with ligamentum flavum hypertrophy. Visualized pelvic bony structures: Normal. Paravertebral soft tissues: Normal. MR/MR lumbar spine wo con* [id number] IMPRESSION: 1. Mild lumbar curve. No acute compression. Degenerative disc space narrowing throughout the lumbar spine worse at L3-L5. 2. Moderate narrowing of the thecal sac L3-L4 and severe narrowing L4-L5 due t o disc bulging in combination with facet arthropathy ligamentum flavum hypertro phy. Prominent dorsal epidural fat contributes to stenosis. 3. Impingement on the RIGHT L4-L5 subarticular recess and traversing RIGHT L5 nerve root. Moderate RIGHT L4-L5 foraminal narrowing. 4. Disc osteophyte complex impinges the traversing LEFT greater than RIGHT S1 nerve roots with moderate LEFT foraminal narrowing. 5. Small RIGHT foraminal protrusion L3-L4 with mild RIGHT foraminal narrowing and slight contact of the exiting RIGHT L3 nerve root.
== END 2022-05-28 11:10 | disposition home or self-care (01) ==
PROVIDERS: PCP Family Medicine; Visit Provider Physical Medicine & Rehabilitation Pain Medicine
DX: M47.816 Spondylosis without myelopathy or radiculopathy, lumbar region (principal); M51.26 Other intervertebral disc displacement, lumbar region; M25.78 Osteophyte, vertebrae
CPT/HCPCS: 72148

== ENCOUNTER → 2022-08-14 12:56 | Outpatient (BNVA) | payer OTHER, SELFPAY | PROVIDERS: PCP Family Medicine; Visit Provider Specialist | DX: M17.11 Unilateral primary osteoarthritis, right knee (principal) | CPT/HCPCS: 20610; 73560; 73565; 99204; J7326 ==

== ENCOUNTER 2022-09-01 15:32 | Emergency (ER) | payer OTHER, SELFPAY ==
--- NOTE | 2022-09-01 16:30 | W.ED.PSYCHS ---
Documented by User: Doug Shah MD 09/08/22 17:56 HPI - Psych General: Chief Complaint: Psychiatric Symptoms Stated Complaint: Psych Eval Time Seen by Provider: 09/01/22 16:29 Limitations: altered mental status History of Present Illness: Mr Valenzuela is a 52-year-old gentleman with history of depression, history of opioid use disorder, and uncertain other past medical history presenting to the emergency department for psychiatric evaluation. The patient himself is tangential and difficult to redirect at times. Additionally he trails off with a rapid speech that comes mildly. He does endorse hallucinations of things coming to get him especially when he closes his eyes or is trying to sleep. He apparently called his brother to say that he was going to kill himself or his however the patient does not specifically recollect this. He does endorse some sort of medication change though has difficulty saying what and attributes some of his symptoms to possible side effects. Medically reports right shoulder pain associated with a injury secondary to a farm animal which has not been assessed though happened sometime ago. Denies other new medical symptoms though reliability is questionable for all history. No other specific changes in health, exacerbating, or alleviating factors identified. Review of Systems General: Reports: ROS unobtainable due to mental status COUNTS INCLUDE 234 BEDS AT THE [facility] ED PFSH: Medical History Hypertension Obesity Surgical History History of rhinoplasty Social History Smoking and tobacco status: never smoked Alcohol intake: never Physical Exam Const: COMMON NORMALS: alert GENERAL APPEARANCE: cooperative and well developed HENMT: COMMON NORMALS: normocephalic and atraumatic HEAD & SCALP: normocephalic and atraumatic Eye: COMMON NORMALS: conjunctivae normal CONJUNCTIVA: Yes conjunctivae normal SCLERA: sclerae normal Neck/C-Spine: COMMON NORMALS: supple GENERAL: Yes trachea midline Resp: COMMON NORMALS: clear to auscultation bilaterally EFFORT & INSPECTION: Yes able to speak in complete sentences AUSCULTATION: clear to auscultation bilaterally Cardio: COMMON NORMALS: regular rate and regular rhythm RATE: regular rate RHYTHM: regular rhythm GI: COMMON NORMALS: Soft to palpation PALPATION: Yes Soft to palpation and No Tenderness to palpation present (GI) Extremity: GENERAL: Yes normal exam except as noted and No edema Neuro: COMMON NORMALS: moves all extremities SENSORIUM/ORIENTATION: Yes alert and No Orientation impaired Psych: ATTITUDE: Yes bizarre ACTIVITY/MOTOR BEHAVIOR: Yes appropriate eye contact SPEECH: Yes rapid and Yes Pressured speech present THOUGHT PROCESS: disorganized and Tangential thought process present INSIGHT: Limited insight present (Psych) JUDGEMENT: questionable Course Vital Signs: Vital signs: Vital Signs Pulse Rate 75 09/02/22 10:49 Respiratory Rate 16 09/02/22 10:49 Blood Pressure 176/96 09/02/22 10:49 Pulse Oximetry 96 09/02/22 10:49 Oxygen Delivery Me thod 09/01/22 20:07 MDM - Psych Medical Decision Making 52-year-old gentleman presenting for psychiatric evaluation in the context of possible psychiatric history. Patient reportedly expressed to family member suicidal and homicidal ideation. Upon initial evaluation patient is cooperative however appears to be somewhat psychotic with poor insight, memory, and judgment. EKG reviewed showing sinus rhythm without evidence of STEMI. Laboratory studies notable for minimal leukocytosis which in the absence of infectious symptoms it is likely not clinically significant, hemoglobin is normal as is platelet count. Metabolic panel without acute derangement to explain symptoms. Mild transaminitis is also nonspecific and can be followed in the outpatient given absence of right upper quadrant abdominal pain or other associated GI symptoms. TSH normal. Urinalysis without evidence of urinary tract infection. Toxic ingestions negative, UDS positive for benzodiazepines. COVID-negative. Given patient's medical concern of shoulder injury x-rays were obtained and showed degenerative changes however no acute fracture. Additionally given somewhat vague history and current mental status a CT of the head was ordered without evidence of intracranial hemorrhage or mass or other acute pathology to explain symptoms. Given patient's current mental status and presenting report I believe that patient requires inpatient management at this time. The patient typically follows with the [facility] in [place] however we will reach out to other facilities if [facility] does not have psychiatric beds at this time. Based on ED evaluation at this point there is no obvious condition that would preclude the patient from inpatient management of psychiatric concerns. Patient care handed off to Dr. Key pending placement. Medical Records I reviewed the patient's medical records. Lab Data I reviewed the patient's lab results. : 09/01/22 17:55 09/01/22 17:[address] 09/01/22 16:43 IMPRESSION: There are senescent changes of the brain as described above. No evidence for large acute ischemic infarction or acute intracranial injury. Chest X-Ray 09/01/22 16:52 IMPRESSION: No evidence for acute cardiopulmonary disease. Shoulder X-Ray 09/01/22 16:52 IMPRESSION: There are moderate degenerative changes across the acromioclavicular joint. Laboratory Results WBC 10.6 10^3/uL (4.0-10.0) H 09/01/22 17:55 RBC 5.01 10^6/uL (4.1-5.3) 09/01/22 17:55 Hgb 15.4 g/dL (11.7-16.6) 09/01/22 17:55 Hct 45.8 % (42.0-52.0) 09/01/22 17:55 MCV 91.4 fl (80-94) 09/01/22 17:55 MCH 30.7 pg (28.0-34.0) 09/01/22 17:55 MCHC 33.6 g/dL (30.0-36.0) 09/01/22 17:55 RDW 12.9 % (12.1-15.1) 09/01/22 17:55 Plt Count 219 10^3/cmm (130-400) 09/01/22 17:55 MPV 11.2 fL (7.4-10.4) H 09/01/22 17:55 Neut % (Auto) 77.4 % 09/01/22 17:55 Lymph % (Auto) 16.9 % 09/01/22 17:55 Mcculloch % (Auto) 4.6 % 09/01/22 17:55 Eos % (Auto) 0.1 % 09/01/22 17:55 Baso % (Auto) 0.5 % 09/01/22 17:55 Neut # (Auto) 8.18 10^3/uL (1.8-7.7) H 09/01/22 17:55 Lymph # (Auto) 1.8 10^3/uL (0.8-4.8) 09/01/22 17:55 M[place]ulloch # (Auto) 0.5 10^3/uL (0.2-0.9) 09/01/22 17:55 Eos # (Auto) 0.0 10^3/uL (0.0-0.8) 09/01/22 17:55 Baso # (Auto) 0.1 10^3/uL (0.0-0.1) 09/01/22 17:55 Nucleated RBC % (auto) 0 % 09/01/22 17:55 Nucleated RBCs # 0.0 /100WBC 09/01/22 17:55 Sodium 136 mmol/L (136-145) 09/01/22 17:55 Potassium 4.2 mmol/L (3.5-5.1) 09/01/22 17:55 Chloride 101 mmol/L (98-107) 09/01/22 17:55 Carbon Dioxide 22 mmol/L (22-29) 09/01/22 17:55 Anion Gap 17.2 (5-19) 09/01/22 17:55 BUN 11 mg/dL (6-20) 09/01/22 17:55 Creatinine 1.0 mg/dL (0.7-1.2) 09/01/22 17:55 GFR Calculation 79.1 mL/min (90-130) L 09/01/22 17:55 Glucose 166 mg/dL (65-115) H 09/01/22 17:55 Calculated Osmolality 285 mOsm/kg (285-295) 09/01/22 17:55 Calcium 9.7 mg/dL (8.5-10.5) 09/01/22 17:55 Total Bilirubin 0.5 mg/dL (0.15-1.2) 09/01/22 17:55 AST 106 U/L (0-40) H 09/01/22 17:55 ALT 138 U/L (0-41) H 09/01/22 17:55 Alkaline Phosphatase 73 U/L (40-130) 09/01/22 17:55 Total Protein 9.1 g/dL (6.6-8.7) H 09/01/22 17:55 Albumin 4.2 g/dL (3.5-5.2) 09/01/22 17:55 Globulin 4.9 g/dL (1.3-4.6) H 09/01/22 17:55 TSH 0.54 uIU/mL (0.27-4.20) 09/01/22 17:55 Urine Color Yellow (Yellow) 09/01/22 16:51 Urine Appearance Clear (CLEAR) 09/01/22 16:51 Urine pH 6 (5-7) 09/01/22 16:51 Ur Specific [place] 1.020 (1.005-1.030) 09/01/22 16:51 Urine Protein 1+ (Negative) H 09/01/22 16:51 Urine Glucose (UA) Norm (Normal) 09/01/22 16:51 Urine Ketones 3+ (Negative) H 09/01/22 16:51 Urine Blood Neg (Negative) 09/01/22 16:51 Urine Nitrate Negative (Negative) 09/01/22 16:51 Urine Bilirubin Neg (Negative) 09/01/22 16:51 Urine Urobilinogen Norm mg/dL (Negative) 09/01/22 16:51 Ur Leukocyte Esterase Negative (Negative) 09/01/22 16:51 Urine RBC None /hpf (0-2) 09/01/22 16:51 Urine WBC None /hpf (0-5) 09/01/22 16:51 Ur Squamous Epith Cells 0-4 /hpf (0-5) H 09/01/22 16:51 Amorphous Sediment Not Reportable 09/01/22 16:51 Urine Bacteria None /hpf (NONE) 09/01/22 16:51 Urine Mucus 3+ /hpf 09/01/22 16:51 Salicylates 0.5 mg/dL (3-10) L 09/01/22 17:55 Urine Opiates Screen Negative ng/mL (Negative) 09/01/22 16:56 Acetaminophen < 5.0 ug/mL (10-30) L 09/01/22 17:55 Ur Barbiturates Screen Negative ng/mL (Negative) 09/01/22 16:56 Ur Phencyclidine Scrn Negative ng/mL (Negative) 09/01/22 16:56 Ur Amphetamines Screen Negative ng/mL (Negative) 09/01/22 16:56 U Benzodiazepines Scrn Positive ng/mL (Negative) H 09/01/22 16:56 Urine Cocaine Screen Negative ng/mL (Negative) 09/01/22 16:56 U Marijuana (THC) Screen Negative ng/mL (Negative) 09/01/22 16:56 Ethyl Alcohol < 10 mg/dL (0-10) 09/01/22 17:55 Coronavirus 229E (PCR) Not detected (NOT DETECT) 09/02/22 04:00 SARS-CoV-2 (PCR) Not detected (NOT DETECT) 09/02/22 04:00 SARS-CoV-2 Ag (Rapid) negative (Negative) 09/01/22 17:50 Discharge Plan Discharge Patient Disposition: Xfer Psychiatric Hosp Clinical Impression: Acute psychosis, Depression with suicidal ideation Condition: Stable Referrals: Cookie Villatoro MD [Primary Care Provider] - Sign Out Sign Out Data: Patient Sign Out occurred on 09/02/22 at 07:08. Patient's care was discussed, and care was transferred from to Colton Ramos DO. Coding Level of Care Code ED [employer] for Chg Fwd Exam Comprehensive Documented by User: Mac Key DO 09/02/22 04:24 HPI - Psych General: Chief Complaint: Psychiatric Symptoms Stated Complaint: Psych Eval Time Seen by Provider: 09/01/22 16:29 PFSH ED PFSH: Medical History Hypertension Obesity Surgical History History of rhinoplasty Social History Smoking and tobacco status: never smoked Alcohol intake: never Course Vital Signs: Vital signs: Vital Signs Pulse Rate 75 09/02/22 10:49 Respiratory Rate 16 09/02/22 10:49 Blood Pressure 176/96 09/02/22 10:49 Pulse Oximetry 96 09/02/22 10:49 Oxygen Delivery Me thod 09/01/22 20:07 MDM - Psych Medical Decision Making 52-year-old gentleman presenting for psychiatric evaluation in the context of possible psychiatric history. Patient reportedly expressed to family member suicidal and homicidal ideation. Upon initial evaluation patient is cooperative however appears to be somewhat psychotic with poor insight, memory, and judgment. EKG reviewed showing sinus rhythm without evidence of STEMI. Laboratory studies notable for minimal leukocytosis which in the absence of infectious symptoms it is likely not clinically significant, hemoglobin is normal as is platelet count. Metabolic panel without acute derangement to explain symptoms. Mild transaminitis is also nonspecific and can be followed in the outpatient given absence of right upper quadrant abdominal pain or other associated GI symptoms. TSH normal. Urinalysis without evidence of urinary tract infection. Toxic ingestions negative, UDS positive for benzodiazepines. COVID-negative. Given patient's medical concern of shoulder injury x-rays were obtained and showed degenerative changes however no acute fracture. Additionally given somewhat vague history and current mental status a CT of the head was ordered without evidence of intracranial hemorrhage or mass or other acute pathology to explain symptoms. Given patient's current mental status and presenting report I believe that patient requires inpatient management at this time. The patient typically follows with the [facility] in [place] however we will reach out to other facilities if [facility] does not have psychiatric beds at this time. Based on ED evaluation at this point there is no obvious condition that would preclude the patient from inpatient management of psychiatric concerns. Patient care handed off to Dr. Key pending placement. 4:23 AM: This patient has remained medically stable. Vitals have been stable. No intervention has been needed behaviorally or otherwise. He was checked out to me by the previous physician at shift change. [facility]. We are awaiting a PCR COVID test as they requested this prior to looking at his paperwork. He will be checked out to the oncoming physician at shift change pending placement. Lab Data : 09/01/22 17:55 09/01/22 17:[address] 09/01/22 16:43 IMPRESSION: There are senescent changes of the brain as described above. No evidence for large acute ischemic infarction or acute intracranial injury. Chest X-Ray 09/01/22 16:52 IMPRESSION: No evidence for acute cardiopulmonary disease. Shoulder X-Ray 09/01/22 16:52 IMPRESSION: There are moderate degenerative changes across the acromioclavicular joint. Laboratory Results WBC 10.6 10^3/uL (4.0-10.0) H 09/01/22 17:55 RBC 5.01 10^6/uL (4.1-5.3) 09/01/22 17:55 Hgb 15.4 g/dL (11.7-16.6) 09/01/22 17:55 Hct 45.8 % (42.0-52.0) 09/01/22 17:55 MCV 91.4 fl (80-94) 09/01/22 17:55 MCH 30.7 pg (28.0-34.0) 09/01/22 17:55 MCHC 33.6 g/dL (30.0-36.0) 09/01/22 17:55 RDW 12.9 % (12.1-15.1) 09/01/22 17:55 Plt Count 219 10^3/cmm (130-400) 09/01/22 17:55 MPV 11.2 fL (7.4-10.4) H 09/01/22 17:55 Neut % (Auto) 77.4 % 09/01/22 17:55 Lymph % (Auto) 16.9 % 09/01/22 17:55 [place]ull[place] % (Auto) 4.6 % 09/01/22 17:55 Eos % (Auto) 0.1 % 09/01/22 17:55 Baso % (Auto) 0.5 % 09/01/22 17:55 Neut # (Auto) 8.18 10^3/uL (1.8-7.7) H 09/01/22 17:55 Lymph # (Auto) 1.8 10^3/uL (0.8-4.8) 09/01/22 17:55 [place] # (Auto) 0.5 10^3/uL (0.2-0.9) 09/01/22 17:55 Eos # (Auto) 0.0 10^3/uL (0.0-0.8) 09/01/22 17:55 Baso # (Auto) 0.1 10^3/uL (0.0-0.1) 09/01/22 17:55 Nucleated RBC % (auto) 0 % 09/01/22 17:55 Nucleated RBCs # 0.0 /100WBC 09/01/22 17:55 Sodium 136 mmol/L (136-145) 09/01/22 17:55 Potassium 4.2 mmol/L (3.5-5.1) 09/01/22 17:55 Chloride 101 mmol/L (98-107) 09/01/22 17:55 Carbon Dioxide 22 mmol/L (22-29) 09/01/22 17:55 Anion Gap 17.2 (5-19) 09/01/22 17:55 BUN 11 mg/dL (6-20) 09/01/22 17:55 Creatinine 1.0 mg/dL (0.7-1.2) 09/01/22 17:55 GFR Calculation 79.1 mL/min (90-130) L 09/01/22 17:55 Glucose 166 mg/dL (65-115) H 09/01/22 17:55 Calculated Osmolality 285 mOsm/kg (285-295) 09/01/22 17:55 Calcium 9.7 mg/dL (8.5-10.5) 09/01/22 17:55 Total Bilirubin 0.5 mg/dL (0.15-1.2) 09/01/22 17:55 AST 106 U/L (0-40) H 09/01/22 17:55 ALT 138 U/L (0-41) H 09/01/22 17:55 Alkaline Phosphatase 73 U/L (40-130) 09/01/22 17:55 Total Protein 9.1 g/dL (6.6-8.7) H 09/01/22 17:55 Albumin 4.2 g/dL (3.5-5.2) 09/01/22 17:55 Globulin 4.9 g/dL (1.3-4.6) H 09/01/22 17:55 TSH 0.54 uIU/mL (0.27-4.20) 09/01/22 17:55 Urine Color Yellow (Yellow) 09/01/22 16:51 Urine Appearance Clear (CLEAR) 09/01/22 16:51 Urine pH 6 (5-7) 09/01/22 16:51 Ur Specific [place] 1.020 (1.005-1.030) 09/01/22 16:51 Urine Protein 1+ (Negative) H 09/01/22 16:51 Urine Glucose (UA) Norm (Normal) 09/01/22 16:51 Urine Ketones 3+ (Negative) H 09/01/22 16:51 Urine Blood Neg (Negative) 09/01/22 16:51 Urine Nitrate Negative (Negative) 09/01/22 16:51 Urine Bilirubin Neg (Negative) 09/01/22 16:51 Urine Urobilinogen Norm mg/dL (Negative) 09/01/22 16:51 Ur Leukocyte Esterase Negative (Negative) 09/01/22 16:51 Urine RBC None /hpf (0-2) 09/01/22 16:51 Urine WBC None /hpf (0-5) 09/01/22 16:51 Ur Squamous Epith Cells 0-4 /hpf (0-5) H 09/01/22 16:51 Amorphous Sediment Not Reportable 09/01/22 16:51 Urine Bacteria None /hpf (NONE) 09/01/22 16:51 Urine Mucus 3+ /hpf 09/01/22 16:51 Salicylates 0.5 mg/dL (3-10) L 09/01/22 17:55 Urine Opiates Screen Negative ng/mL (Negative) 09/01/22 16:56 Acetaminophen < 5.0 ug/mL (10-30) L 09/01/22 17:55 Ur Barbiturates Screen Negative ng/mL (Negative) 09/01/22 16:56 Ur Phencyclidine Scrn Negative ng/mL (Negative) 09/01/22 16:56 Ur Amphetamines Screen Negative ng/mL (Negative) 09/01/22 16:56 U Benzodiazepines Scrn Positive ng/mL (Negative) H 09/01/22 16:56 Urine Cocaine Screen Negative ng/mL (Negative) 09/01/22 16:56 U Marijuana (THC) Screen Negative ng/mL (Negative) 09/01/22 16:56 Ethyl Alcohol < 10 mg/dL (0-10) 09/01/22 17:55 Coronavirus 229E (PCR) Not detected (NOT DETECT) 09/02/22 04:00 SARS-CoV-2 (PCR) Not detected (NOT DETECT) 09/02/22 04:00 SARS-CoV-2 Ag (Rapid) negative (Negative) 09/01/22 17:50 Discharge Plan Discharge Patient Disposition: Xfer Psychiatric Hosp Clinical Impression: Acute psychosis, Depression with suicidal ideation Condition: Stable Referrals: Cookie Villatoro MD [Primary Care Provider] - Sign Out Sign Out Data: Patient Sign Out occurred on 09/02/22 at 07:08. Patient's care was discussed, and care was transferred from to Colton Ramos DO. Coding Level of Care Code ED [employer] for Chg Fwd Exam Comprehensive Documented by User: Colton Ramos DO 09/02/22 09:36 HPI - Psych General: Chief Complaint: Psychiatric Symptoms Stated Complaint: Psych Eval Time Seen by Provider: 09/01/22 16:29 PFSH ED PFSH: Medical History Hypertension Obesity Surgical History History of rhinoplasty Social History Smoking and tobacco status: never smoked Alcohol intake: never Course Vital Signs: Vital signs: Vital Signs Pulse Rate 75 09/02/22 10:49 Respiratory Rate 16 09/02/22 10:49 Blood Pressure 176/96 09/02/22 10:49 Pulse Oximetry 96 09/02/22 10:49 Oxygen Delivery Me thod 09/01/22 20:07 MDM - Psych Medical Decision Making 52-year-old gentleman presenting for psychiatric evaluation in the context of possible psychiatric history. Patient reportedly expressed to family member suicidal and homicidal ideation. Upon initial evaluation patient is cooperative however appears to be somewhat psychotic with poor insight, memory, and judgment. EKG reviewed showing sinus rhythm without evidence of STEMI. Laboratory studies notable for minimal leukocytosis which in the absence of infectious symptoms it is likely not clinically significant, hemoglobin is normal as is platelet count. Metabolic panel without acute derangement to explain symptoms. Mild transaminitis is also nonspecific and can be followed in the outpatient given absence of right upper quadrant abdominal pain or other associated GI symptoms. TSH normal. Urinalysis without evidence of urinary tract infection. Toxic ingestions negative, UDS positive for benzodiazepines. COVID-negative. Given patient's medical concern of shoulder injury x-rays were obtained and showed degenerative changes however no acute fracture. Additionally given somewhat vague history and current mental status a CT of the head was ordered without evidence of intracranial hemorrhage or mass or other acute pathology to explain symptoms. Given patient's current mental status and presenting report I believe that patient requires inpatient management at this time. [facility] [place] [facility] we will reach out to other facilities if [facility] does not have psychiatric beds at this time. Based on ED evaluation at this point there is no obvious condition that would preclude the patient from inpatient management of psychiatric concerns. Patient care handed off to Dr. Key pending placement. 4:23 AM: This patient has remained medically stable. Vitals have been stable. No intervention has been needed behaviorally or otherwise. He was checked out to me by the previous physician at shift change. [facility] They have beds available. We are awaiting a PCR COVID test as they requested this prior to looking at his paperwork. He will be checked out to the oncoming physician at shift change pending placement. 09/02/2022 9:36 AM Assumed care at change of shift discussed with Dr. Boyd at [facility] they have agreed to accept patient on transfer making arrangements for transportation via ambulance. [facility]. Additionally we do not have any beds available at our facility in the psychiatric unit. Lab Data : 09/01/22 17:55 09/01/22 17:[address] 09/01/22 16:43 IMPRESSION: There are senescent changes of the brain as described above. No evidence for large acute ischemic infarction or acute intracranial injury. Chest X-Ray 09/01/22 16:52 IMPRESSION: No evidence for acute cardiopulmonary disease. Shoulder X-Ray 09/01/22 16:52
--- NOTE | 2022-09-01 16:43 | ECG_ITS ---
[facility] Test Date: 2022-09-01 Pat Name: Star Valenzuela Department: Room: Gender: Male [employer] Administrator: : 1970 Requested By: Doug Shah Order Number: [id number] Hollis MD: Kyle Lazcano M.D. Measurements Intervals [place] Rate: 74 P: 24 HI: 157 QRS: 22 QRSD: 90 T: 46 QT: 357 QTc: 398 Interpretive Statements SINUS RHYTHM Compared to ECG 01/05/2022 08:05:10 Sinus tachycardia no longer present T-wave abnormality no longer present Electronically Signed On 09-02-2022 14:51:32 CDT by Kyle Lazcano M.D. [email or web address]
--- NOTE | 2022-09-01 16:43 | CTR_ITS ---
PROCEDURE INFORMATION: Exam: CT Head Without Contrast Exam date and time: 09/01/2022 4:58 PM Age: 52 years old Clinical indication: Altered mental status/memory loss; Additional info: Ams/psych TECHNIQUE: Imaging protocol: Computed tomography of the head without contrast. Radiation optimization: All CT scans at this facility use at least one of these dose optimization techniques: automated exposure control; mA and/or kV adjustment per patient size (includes targeted exams where dose is matched to clinical indication); or iterative reconstruction. COMPARISON: CT head wo con* [id number] 01/07/2022 7:30 AM RADIATION DOSE METRICS: Total DLP (mGy-cm): 1126.71 FINDINGS: Brain: There is minimal calcified plaque in the intracranial vasculature. There is mild diffuse cerebral atrophy present, consistent with this patient's age. Periventricular and subcortical white matter low densities are present which at this age likely represent microvascular ischemic change. No evidence for large acute ischemic infarction. Please note acute ischemia can be occult by head CT. No evidence for acute intracranial hemorrhage. Cerebral ventricles: No ventriculomegaly. Paranasal sinuses: Visualized sinuses are unremarkable. No fluid levels. Mastoid air cells: Visualized mastoid air cells are well aerated. Bones/joints: Unremarkable. No acute fracture. Soft tissues: Unremarkable. CT/CT head wo con* [id number] IMPRESSION: There are senescent changes of the brain as described above. No evidence for large acute ischemic infarction or acute intracranial injury.
--- NOTE | 2022-09-01 16:52 | XRR_ITS ---
PROCEDURE INFORMATION: Exam: XR Right Shoulder Exam date and time: 09/01/2022 5:01 PM Age: 52 years old Clinical indication: Pain; Shoulder; Right; Additional info: Injury, anterior pain TECHNIQUE: Imaging protocol: Radiologic exam of the Right shoulder. Views: 2 or more views. COMPARISON: [place] [id number] 01/05/2022 8:44 AM FINDINGS: Bones/joints: There are moderate degenerative changes across the acromioclavicular joint. No evidence for acute fracture. Soft tissues: Normal. XR/XR shoulder RT min 2V* [id number] IMPRESSION: There are moderate degenerative changes across the acromioclavicular joint.
--- NOTE | 2022-09-01 16:52 | XRR_ITS ---
PROCEDURE INFORMATION: Exam: XR Chest Exam date and time: 09/01/2022 5:01 PM Age: 52 years old Clinical indication: Pain; Right-sided; Additional info: R chest pain/injury TECHNIQUE: Imaging protocol: Radiologic exam of the chest. Views: 1 view. COMPARISON: [place] [id number] 01/05/2022 8:44 AM FINDINGS: Lungs: There is minimal scarring and/or atelectasis at the left lung base. Pleural spaces: Unremarkable. No pleural effusion. No pneumothorax. Heart/Mediastinum: Unremarkable. No cardiomegaly. Bones/joints: Unremarkable. XR/XR chest 1V portable [id number] IMPRESSION: No evidence for acute cardiopulmonary disease.
[2022-09-01 17:12] LABS: Amphetamines Screen Urine Negative (Negative); Barbiturates Screen Urine Negative (Negative); Benzodiazepines Screen Urine Positive (Negative); Cocaine Screen Urine Negative (Negative); Opiate Screen Urine Negative (Negative); PCP Screen Urine Negative (Negative); THC Screen Urine Negative (Negative)
[2022-09-01] MEDS: LORazepam 1 mg Tablet PO ×2 (17:50→23:06)
[2022-09-01 18:08] LABS: Basophils # 0.1 10^3/uL (0.0-0.1); Basophils % 0.5 %; Eosinophils % 0.1 %; Hematocrit 45.8 % (42.0-52.0); Hemoglobin 15.4 g/dL (11.7-16.6); Lymphocytes # 1.8 10^3/uL (0.8-4.8); Lymphocytes % 16.9 %; Mean Corpuscular HGB Conc 33.6 g/dL (30.0-36.0); Mean Corpuscular Hemoglobin 30.7 pg (28.0-34.0); Mean Corpuscular Volume 91.4 fl (80-94); Mean Platelet Volume 11.2 fL (7.4-10.4); Monocytes # 0.5 10^3/uL (0.2-0.9); Monocytes % 4.6 %; Neutrophils # 8.18 10^3/uL (1.8-7.7); Neutrophils % 77.4 %; Nucleated Red Blood Cells % 0 %; Platelet Count 219 10^3/cmm (130-400); Red Blood Count 5.01 10^6/uL (4.1-5.3); Red Cell Distribution Width 12.9 % (12.1-15.1); White Blood Count 10.6 10^3/uL (4.0-10.0)
[2022-09-01 18:38] LABS: Alanine Aminotransferase 138 U/L (0-41); Albumin Level 4.2 g/dL (3.5-5.2); Alkaline Phosphatase 73 U/L (40-130); Anion Gap 17.2 (5-19); Aspartate Amino Transferase 106 U/L (0-40); Blood Urea Nitrogen 11 mg/dL (6-20); Calcium 9.7 mg/dL (8.5-10.5); Carbon Dioxide 22 mmol/L (22-29); Chloride 101 mmol/L (98-107); Globulin 4.9 g/dL (1.3-4.6); Glomerular Filtration Rate 79.1 mL/min (90-130); Glucose 166 mg/dL (65-115); Osmolality Calculated 285 mOsm/kg (285-295); Potassium 4.2 mmol/L (3.5-5.1); Salicylate 0.5 mg/dL (3-10); Sodium 136 mmol/L (136-145); Thyroid Stimulating Hormone 0.54 uIU/mL (0.27-4.20); Total Bilirubin 0.5 mg/dL (0.15-1.2); Total Protein 9.1 g/dL (6.6-8.7)
[2022-09-01 18:44] LABS: SARS Covid-2 Antigen negative (Negative)
[2022-09-01 18:55] LABS: Acetaminophen < 5.0 ug/mL (10-30); Alcohol Level < 10 mg/dL (0-10)
[2022-09-01 19:42] LABS: Glucose Urine UA Norm (Normal); Ketones Urine 3+ (Negative); Protein Urine 1+ (Negative); Urine Appearance Clear (CLEAR); Urine Color Yellow (Yellow); pH Urine 6 (5-7)
[2022-09-01 19:43] LABS: Add Urine Microscopic? YES; Bilirubin Urine Neg (Negative); Blood Urine Neg (Negative); Leukocyte Esterase Urine Negative (Negative); Nitrate Urine Negative (Negative); Urobilinogen Urine Norm (Negative)
[2022-09-01 19:44] LABS: Add Urine Culture? No; Mucus Urine 3+ /hpf; Squamous Epithelial Cell Urine 0-4 /hpf (0-5)
[2022-09-01 20:07] VITALS: BP 144/104; PULSE 72; RESP 14; O2SAT 97
--- NOTE | 2022-09-01 22:37 | PC.NURSE ---
Pt in room with 1:1 sitter, per policy all items removed and he is in paper scrubs, VSS, no complaints at this time.
--- NOTE | 2022-09-01 23:08 | PC.NURSE ---
Nurse called to room by sitter, pt was becoming agitated and anxious, requesting that we call the [facility] in [place] to help him. Was voicing minor paranoid thoughts regarding family members of another pt who were in the hallway. Dr. Shah consulted, ordered Ativan 1mg PO once was administered.
--- NOTE | 2022-09-02 02:35 | PC.NURSE ---
Nurse called to room by barrett, pt c/o something bleeding on my neck no injury found on neck but did have a scabbed over cut on his left thumb had a small amount of blood present. Bandage was applied per pt request.
[2022-09-02] MEDS: ziprasidone 20 mg/mL SDV IM (05:32)
--- NOTE | 2022-09-02 05:38 | PC.NURSE ---
Nurse called to room by sitter due to pt with increasing agitation, hallucinations, and paranoia, 20mg Geodon IM once ordered and administered.
[2022-09-02 05:46] LABS: Adenovirus Not Detected (NOT DETECT); Chlamydia Pneumoniae Not Detected (NOT DETECT); Coronavirus 229E,HKU1,NL63,OC4 Not Detected (NOT DETECT); Human Metapneumovirus Not Detected (NOT DETECT); Human Rhinovirus/Enterovirus Not Detected (NOT DETECT); Influenza A Not Detected (NOT DETECT); Influenza A H1 Not Detected (NOT DETECT); Influenza A H1-2009 Not Detected (NOT DETECT); Influenza A H3 Not Detected (NOT DETECT); Influenza B Not Detected (NOT DETECT); Mycoplasma Pneumoniae Not Detected (NOT DETECT); Parainfluenza Virus Type 1 Not Detected (NOT DETECT); Parainfluenza Virus Type 2 Not Detected (NOT DETECT); Parainfluenza Virus Type 3 Not Detected (NOT DETECT); Parainfluenza Virus Type 4 Not Detected (NOT DETECT); Respiratory Syncytial Virus A Not Detected (NOT DETECT); Respiratory Syncytial Virus B Not Detected (NOT DETECT); SARS-COV-2 Not Detected (NOT DETECT)
--- NOTE | 2022-09-02 09:31 | PC.NURSE ---
Report called to Johnny Skelton RN at [facility] in [place], [place].
[2022-09-02 09:33] VITALS: BP 176/96; PULSE 75; RESP 16; O2SAT 96
[2022-09-02 10:49] VITALS: BP 176/96; PULSE 75; RESP 16; O2SAT 96
== END 2022-09-02 10:45 ==
PROVIDERS: Emergency Medicine; Emergency Provider Family Medicine; PCP Family Medicine
DX: F32.A Depression, unspecified (principal); F23 Brief psychotic disorder; I10 Essential (primary) hypertension; Z20.822 Contact with and (suspected) exposure to COVID-19
CPT/HCPCS: 70450; 71045; 73030; 80053; 80306; 80307; 81001; 84443; 85025; 87426; 87635; 93005; 96372; 99285; J3486

== ENCOUNTER 2025-04-18 11:04 | Emergency (ER) | payer OTHER, SELFPAY ==
[2025-04-18 11:33] VITALS: BP 116/86; PULSE 97; RESP 20; TEMP 36.7; O2SAT 97
--- NOTE | 2025-04-18 13:23 | ED_ITS ---
HPI - Back Pain/Injury 2 General: Chief Complaint: Back Pain/Injury Stated Complaint: back pain Time Seen by Provider: 04/18/25 12:08 Source: patient and family Mode of arrival: ambulatory Limitations: no limitations History of Present Illness: Patient is a 54-year-old male presents to ED today feeling like he might be dehydrated. He states he sweats a lot at work. He does try to do a good job with drinking plenty of water and electrolyte hydration. He feels like he may have overdid it and now has some left-sided lower back pain. He states he does intermittently have chronic back pain that will flareup from time to time. He states his pain today feels identical to previous episodes. He is also noticing occasional muscle spasms. He has a chronic right sided pectoralis muscle deformity/rupture and states the area has been spasming which it does when he gets dehydrated. He has no other complaints at this time. Patient is requesting a work note for the next 2 days. MD elicited complaint: back pain Onset (ago): day(s) Timing: constant Severity: mild Similar Symptoms Previously: Yes Location: left lower back Radiation: none Exacerbating factors: none Relieving factors: none Associated symptoms: Reports no associated symptoms; Deny abdominal pain, chills, dysuria, fatigue, fever(s) or hematuria Related Data Home Medications ?Medication ?Instructions ?Recorded ?Confirmed albuterol sulfate 2.5 mg/3 mL 2.5 mg inhalation Q6H NH N 01/05/22 09/01/22 (0.083 %) solution for nebulization Shortness Of Breat h buprenorphine 2 mg-naloxone 0.5 mg 1 tab sublingual BI D 09/01/22 09/01/22 sublingual tablet Allergies Allergy/AdvReac Type Severity Reaction Status Date / Time No Known Allergies Allergy Verified 08/14/22 13:23 Review of Systems 2 Const: Denies: fever(s), chills, body aches, fatigue or malaise Card: Denies: chest pain Resp: Denies: dyspnea GI: Denies: abdominal pain : Denies: flank pain, dysuria or hematuria Musc: Reports: back pain and muscle cramps; Denies: neck pain, extremity pain, extremity swelling, joint pain, joint swelling, joint redness or muscle weakness Skin/Breast: Denies: rash Neuro: Denies: headache(s), numbness in extremities, weakness in extremities or sensory changes PFSH ED 2 PFSH: Medical History Hypertension Obesity Surgical History History of rhinoplasty Social History Smoking and tobacco/nicotine status: never used tobacco/nicotine Alcohol intake: never Physical Exam 2 Const: COMMON NORMALS: no acute distress, average body habitus, patient oriented x3, no limitations, healthy appearing, alert and well nourished G ENERAL APPEARANCE: cooperative ORIENTATION/CONSCIOUSNESS: Yes awake, Yes oriented to person, Yes oriented to place and Yes oriented to time Chest: OTHER: R pectoral muscle deformity Resp: COMMON NORMALS: normal respiratory effort and clear to auscultation bilaterally AUSCULTATION: clear to auscultation bilaterally Cardio: COMMON NORMALS: regular rate and regular rhythm RATE: regular rate RHYTHM: regular rhythm : COMMON NORMALS: Yes no CVA tenderness BLADDER/KIDNEY EXAM: Yes no CVA tenderness Back/Pelvis: COMMON NORMALS: no CVA tenderness, thoracic and lumbar spine normal to inspection, no thoracic nor lumbar tenderness, thoraco-lumbar ROM normal and straight leg raise negative bilaterally LUMBAR SPINE/LOWER BACK: Y es paraspinal muscle tenderness Lumbar paraspinal muscle tenderness: left and Yes straight leg raise negative bilaterally PELVIS: Yes buttocks normal and No sciatic notch tenderness SACROILIAC JOINTS: Yes SI joints normal S ACRUM: no tenderness COCCYX: no tenderness Extremity: GENERAL: Yes normal exam except as noted Neuro: COMMON NORMALS: patient oriented x3, moves all extremities, no focal motor deficits, no sensory deficits noted and gait normal S ENSORIUM/ORIENTATION: Yes alert, Yes oriented to person, Yes oriented to place and Yes oriented to time Course 2 Vital Signs: Vital signs: Vital Signs Temperature 98.1 F 04/18/25 11:33 Pulse Rate 97 04/18/25 11:33 Respiratory Rate 20 H 04/18/25 11:33 Blood Pressure 116/86 04/18/25 11:33 Pulse Oximetry 97 04/18/25 11:33 MDM - Back Pain/Injury Medical Decision Making Patient clinically appears in no acute distress. Vital signs are stable. Blood work is unremarkable. He will be allowed discharge with recommendations to follow-up with primary care. Work note will be provided. Medical Records I reviewed the patient's medical records. Labs I reviewed the patient's lab results. 04/18/25 13:44 04/18/25 13:44 Laboratory Results WBC 6.30 10^3/uL (3.29-11.43) 04/18/25 13:44 RBC 4.62 10^6/uL (3.85-5.65) 04/18/25 13:44 Hgb 14.00 g/dL (11.27-16.99) 04/18/25 13:44 Hct 40.9 % (37-53) 04/18/25 13:44 MCV 88.5 fl (82-101) 04/18/25 13:44 MCH 30.3 pg (27-33) 04/18/25 13:44 MCHC 34.2 g/dL (30-55) 04/18/25 13:44 RDW 12.1 % (12.1-15.1) 04/18/25 13:44 Plt Count 200 10^3/cmm (157-399) 04/18/25 13:44 MPV 11.0 fL (7.4-10.4) H 04/18/25 13:44 Neut % (Auto) 42.7 % 04/18/25 13:44 Lymph % (Auto) 44.0 % 04/18/25 13:44 Storey % (Auto) 10.3 % 04/18/25 13:44 Eos % (Auto) 2.2 % 04/18/25 13:44 Baso % (Auto) 0.8 % 04/18/25 13:44 Neut # (Auto) 2.69 10^3/uL (1.8-7.7) 04/18/25 13:44 Lymph # (Auto) 2.8 10^3/uL (0.8-4.8) 04/18/25 13:44 Storey # (Auto) 0.7 10^3/uL (0.2-0.9) 04/18/25 13:44 Eos # (Auto) 0.1 10^3/uL (0.0-0.8) 04/18/25 13:44 Baso # (Auto) 0.1 10^3/uL (0.0-0.1) 04/18/25 13:44 Nucleated RBC % (auto) 0 % 04/18/25 13:44 Nucleated RBCs # 0.0 /100WBC 04/18/25 13:44 Sodium 139 mmol/L (136-145) 04/18/25 13:44 Potassium 4.1 mmol/L (3.5-5.1) 04/18/25 13:44 Chloride 101 mmol/L (98-107) 04/18/25 13:44 Carbon Dioxide 23 mmol/L (22-29) 04/18/25 13:44 Anion Gap 19.1 (5-19) H 04/18/25 13:44 BUN 15 mg/dL (6-20) 04/18/25 13:44 Creatinine 0.8 mg/dL (0.7-1.2) 04/18/25 13:44 GFR Calculation 101.5 mL/min (90-130) 04/18/25 13:44 Glucose 97 mg/dL (65-115) 04/18/25 13:44 Calculated Osmolality 289 mOsm/kg (285-295) 04/18/25 13:44 Calcium 8.9 mg/dL (8.5-10.5) 04/18/25 13:44 Total Bilirubin 0.3 mg/dL (0.15-1.2) 04/18/25 13:44 AST 29 U/L (0-40) 04/18/25 13:44 ALT 16 U/L (0-41) 04/18/25 13:44 Alkaline Phosphatase 80 U/L (40-130) 04/18/25 13:44 Total Protein 7.5 g/dL (6.6-8.7) 04/18/25 13:44 Albumin 4.2 g/dL (3.5-5.2) 04/18/25 13:44 Globulin 3.3 g/dL (1.3-4.6) 04/18/25 13:44 No radiology studies performed this visit Discharge Plan Discharge Patient Disposition: Home Clinical Impression: Muscle spasm Back pain Qualifiers: Back pain location: low back pain Chronicity: acute Back pain laterality: left Sciatica presence: without sciatica Qualified Code(s): M54.50 - Low back pain, unspecified Condition: Stable Prescriptions: No Action albuterol sulfate 2.5 mg /3 mL (0.083 %) solution for nebulization 2.5 mg inhalation Q6H PRN (Reason: Shortness Of Breath) buprenorphine-naloxone 2-0.5 mg tablet, sublingual 1 tab SUBLINGUAL BID Discharge Orders: Discharge ED (Routine); Ordered 04/18/25 Ordered By: Darya Paez Referrals: Cookie Villatoro MD [Primary Care Provider, Unknown] Activity Restrictions/Additional Instructions: As we discussed, your blood work here was unremarkable. Please follow-up with primary care later this week for further evaluation if symptoms do not improve. Stand Alone Forms: Work/School Release Print Language: Fijian Coding Level of Care Code ED [facility]arc[facility] Planter for Daya Aguilar
[2025-04-18 14:01] LABS: Basophils # 0.1 10^3/uL (0.0-0.1); Basophils % 0.8 %; Eosinophils # 0.1 10^3/uL (0.0-0.8); Eosinophils % 2.2 %; Hematocrit 40.9 % (37-53); Lymphocytes # 2.8 10^3/uL (0.8-4.8); Mean Corpuscular HGB Conc 34.2 g/dL (30-55); Mean Corpuscular Hemoglobin 30.3 pg (27-33); Mean Corpuscular Volume 88.5 fl (82-101); Monocytes # 0.7 10^3/uL (0.2-0.9); Monocytes % 10.3 %; Neutrophils # 2.69 10^3/uL (1.8-7.7); Neutrophils % 42.7 %; Nucleated Red Blood Cells % 0 %; Platelet Count 200 10^3/cmm (157-399); Red Blood Count 4.62 10^6/uL (3.85-5.65); Red Cell Distribution Width 12.1 % (12.1-15.1)
[2025-04-18 14:20] LABS: Alanine Aminotransferase 16 U/L (0-41); Albumin Level 4.2 g/dL (3.5-5.2); Alkaline Phosphatase 80 U/L (40-130); Anion Gap 19.1 (5-19); Aspartate Amino Transferase 29 U/L (0-40); Blood Urea Nitrogen 15 mg/dL (6-20); Calcium 8.9 mg/dL (8.5-10.5); Carbon Dioxide 23 mmol/L (22-29); Chloride 101 mmol/L (98-107); Creatinine Clr Calc Pharmacy 125.1867; Globulin 3.3 g/dL (1.3-4.6); Glomerular Filtration Rate 101.5 mL/min (90-130); Glucose 97 mg/dL (65-115); Osmolality Calculated 289 mOsm/kg (285-295); Potassium 4.1 mmol/L (3.5-5.1); Sodium 139 mmol/L (136-145); Total Bilirubin 0.3 mg/dL (0.15-1.2); Total Protein 7.5 g/dL (6.6-8.7)
[2025-04-18 14:44] VITALS: BP 120/80; PULSE 70; O2SAT 98
== END 2025-04-18 14:44 | disposition home or self-care (01) ==
PROVIDERS: Emergency Provider Physician Assistant; PCP Family Medicine
DX: M62.838 Other muscle spasm (principal); M54.50 Low back pain, unspecified; I10 Essential (primary) hypertension
CPT/HCPCS: 36415; 80053; 85025; 99283